=== PATIENT | female | born 1945 | race Caucasian/White ===

== ENCOUNTER 2019-08-30 09:36 | Inpatient (IN) | payer MEDICARE, BC ==
[~2019-08-30] VITALS: Ht 167.6 cm; Wt 80.0 kg
[~2019-08-30 09:36] MED LIST: AMIO200T33 PO; APIX5TAB PO; FAM20T PO; FLU220IH INH; FURO1TAB31 PO; GABA300C10 PO; LEV50T PO; METO2.5T11 PO; METO25TA36 PO; POTA1TAB61 PO
[2019-08-30 10:27] LABS: Basophils # (auto) 0.1 uL; Eosinophils # (auto) 0 uL; Eosinophils % (auto) 0.4 % (0.0-7.0); Monocytes # (auto) 0.7 uL; Neutrophils # (auto) 2.5 uL; Nucleated Red Blood Cells % 0.1 %
[2019-08-30 10:29] LABS: Basophils % (auto) 1.9 % (0.0-2.0); Hematocrit 40.5 % (36.0-46.0); Hemoglobin 14.6 g/dL (12.2-16.2); Lymphocytes # (auto) 1.9 uL; Lymphocytes % (auto) 36.9 % (10.0-50.0); Mean Corpuscular Hgb Conc. 36.1 g/dL (32.0-36.0); Mean Corpuscular Volume 96.9 fL (80.0-100.0); Monocytes % (auto) 13.7 % (0.0-12.0); Neutrophils % (auto) 47.1 % (37.0-80.0); Platelet Count (auto) 220 10^3/uL (140-450); Red Blood Cells 4.18 10^6/uL (4.0-5.20); White Blood Cell 5.2 10^3/uL (4.4-10.8)
[2019-08-30] MEDS ORDERED: MIDAZOLAM DRIP 50 mg/50mL 50 ML IV ONE (10:45)
[2019-08-30 10:46] LABS: Albumin 3.1 g/dL (3.4-5.0); Calcium 8.6 mg/dL (8.5-10.1)
[2019-08-30] MEDS ORDERED: ETOMIDATE (2MG/ML) 20ML VIAL IV ONE (10:46)
[2019-08-30] MEDS ORDERED: SUCCINYLCHOLINE CHLORIDE 20 MG/ML 10ML VIAL IV ONE (10:47)
[2019-08-30 10:48] LABS: BUN/Creatinine Ratio 12.8
[2019-08-30] MEDS ORDERED: ONDANSETRON HCL 4 MG/2 ML VIAL ONE (10:49)
[2019-08-30 10:53] LABS: Potassium 2.5 mmol/L (3.5-5.1)
[2019-08-30 11:05] LABS: Bilirubin, Total 0.5 mg/dL (0.2-1.0); Total Protein 6.7 g/dL (6.4-8.2)
[2019-08-30] MEDS ORDERED: SODIUM CHLORIDE 0.9% 1,000 ML IV ONE ×2 (11:49)
[2019-08-30] MEDS ORDERED: MORPHINE SULFATE 4 MG/ML SYR/VIAL IV ONE (12:00)
[2019-08-30] MEDS ORDERED: CLINDAMYCIN 600MG IV 50 ML IV ONE (12:00)
[2019-08-30] MEDS ORDERED: LEVOFLOXACIN 500MG 100 ML IV ONE (12:00)
[2019-08-30] MEDS: POTASSIUM CHL 20MEQ/100ML 100 ML IV SCH ×2 (12:30→14:42)
[2019-08-30] MEDS ORDERED: LIDOCAINE 4MG/ML IV SOLN 500 ML IV SCH (14:45)
[2019-08-30] MEDS ORDERED: NITROGLYCERIN 0.4 MG SL TAB SL PRN (14:45)
[2019-08-30] MEDS ORDERED: ACETAMINOPHEN 500 MG TAB PO PRN (14:45)
[2019-08-30] MEDS ORDERED: MORPHINE SULF INJ 2 MG/ML SYRINGE 1ML IV PRN (14:45)
[2019-08-30] MEDS ORDERED: POTASSIUM CHLORIDE 60 MEQ, LIDOCAINE 1% (LOCAL ANESTH.) 6 ML in SODIUM CHL 0.9% 500 ML IV ONE (15:30)
[2019-08-30 15:48] LABS: Urine Bacteria FEW /hpf (None Seen); Urine Blood Negative /uL (Negative); Urine Hyaline Cast MOD /lpf (0 - 2); Urine Mucus FEW (None Seen); Urine Specific Gravity 1.011 (1.001-1.035); Urine WBC 9 /hpf (0 - 5)
[2019-08-30] MEDS: GABAPENTIN 100 MG CAP PO SCH ×2 (16:34→22:37)
[2019-08-30] MEDS: AMIODARONE HCL 200 MG TAB PO SCH (16:34)
[2019-08-30] MEDS: HYDROmorphone HCL 2 MG/ML VL IV PRN (16:35)
[2019-08-30] MEDS: ONDANSETRON HCL 4 MG/2 ML VIAL IV PRN (16:35)
[2019-08-30 16:57] LABS: BUN/Creatinine Ratio 16.3
[2019-08-30 17:09] VITALS: BP 122/63
[2019-08-30 17:15] LABS: Potassium 2.7 mmol/L (3.5-5.1)
[2019-08-30] MEDS: MAGNESIUM SULFATE 1GM/100ML 100 ML IV SCH ×4 (17:46→22:59)
[2019-08-30] MEDS ORDERED: LEVALBUTEROL HCL 1.25 MG/3 ML NEB ONE (18:25)
[2019-08-30] MEDS ORDERED: IPRATROPIUM BROM 0.5 MG/2.5ML INH SOL ONE (18:25)
[2019-08-30] MEDS: LEVALBUTEROL HCL 1.25 MG/3 ML NEB NEB SCH (18:40)
[2019-08-30] MEDS: IPRATROPIUM BROM 0.5 MG/2.5ML INH SOL NEB SCH (18:40)
[2019-08-30] MEDS: APIXABAN 5 MG TAB PO SCH (22:37)
[2019-08-30] MEDS: METOPROLOL TARTRATE 25 MG TAB PO SCH (22:37)
[2019-08-30] MEDS: HYDROcodone-ACET 5/325MG TAB PO PRN (23:05)
[2019-08-31] MEDS: LEVALBUTEROL HCL 1.25 MG/3 ML NEB NEB SCH ×5 (00:18→23:16)
[2019-08-31] MEDS: IPRATROPIUM BROM 0.5 MG/2.5ML INH SOL NEB SCH ×5 (00:18→23:16)
[2019-08-31] MEDS: LEVOTHYROXINE SODIUM 100 MCG TAB PO SCH (07:27)
[2019-08-31] MEDS: GABAPENTIN 100 MG CAP PO SCH ×3 (07:27→20:56)
[2019-08-31 08:00] LABS: Basophils # (auto) 0 uL; Basophils % (auto) 0.4 % (0.0-2.0); Eosinophils # (auto) 0.1 uL; Lymphocytes # (auto) 1.4 uL
[2019-08-31 08:04] LABS: Eosinophils % (auto) 1.1 % (0.0-7.0); Hematocrit 34.8 % (36.0-46.0); Hemoglobin 11.9 g/dL (12.2-16.2); Lymphocytes % (auto) 23.3 % (10.0-50.0); Mean Corpuscular Hemoglobin 34.7 pg (28.0-32.0); Mean Corpuscular Hgb Conc. 34.3 g/dL (32.0-36.0); Mean Corpuscular Volume 101.3 fL (80.0-100.0); Monocytes # (auto) 0.5 uL; Monocytes % (auto) 8.4 % (0.0-12.0); Neutrophils % (auto) 66.8 % (37.0-80.0); Nucleated Red Blood Cells % 0.3 %; Platelet Count (auto) 171 10^3/uL (140-450); Red Blood Cells 3.44 10^6/uL (4.0-5.20); Red Cell Distribution Width 14.7 % (11.8-14.3)
[2019-08-31 08:26] LABS: Calcium 7.3 mg/dL (8.5-10.1); Potassium 3.4 mmol/L (3.5-5.1)
[2019-08-31 08:34] LABS: BUN/Creatinine Ratio 14.1
[2019-08-31] MEDS ORDERED: SERTRALINE HCL 50 MG TAB PO SCH (10:00)
[2019-08-31 10:30] VITALS: BP 139/68
--- NOTE | 2019-08-31 10:30 | NUR ---
RIGHT HAND. RIGHT HAND WAS SWOLLEN, [place] REMOVE TO ALLOW CIRCULATION. IV WAS REMOVED FROM RIGHT HAND D/T BLEEDING OF THE SITE.
--- NOTE | 2019-08-31 10:30 | NUR ---
PATIENT ARRIVED TO THE UNIT ALERT AND ORIENTED, UNLABORED RESPIRATION. EXPLAINED TO PT AND FAMILY THE USE OF CALL LIGHT. BED ON LOWEST POSITION FOR SAFETY. HELPED PT PLACE BILATERAL HEARING AIDS. PATIENT AWARE OF POC, VERBALIZED UNDERSTANDING. WILL CONTINUE TO MONITOR.
[2019-08-31] MEDS ORDERED: METO2.5T11 PO (10:53)
[2019-08-31] MEDS ORDERED: LEVO100T8 PO (10:53)
[2019-08-31] MEDS ORDERED: SERT25TA84 PO (10:53)
[2019-08-31] MEDS ORDERED: SACC1CAP3 PO (10:53)
[2019-08-31] MEDS ORDERED: D-MA500C PO (10:53)
[2019-08-31] MEDS ORDERED: GABA100C9 PO (10:53)
--- NOTE | 2019-08-31 11:00 | NUR ---
CODE CLARIFICATION WHILE RESOURCE NURSE WAS PERFORMING ADMISSION QUESTIONER. PATIENT STATED IN FRONT OF FAMILY DAUGHTER AND , THAT SHE WANTED FOR [facility] TO DO EVERYTHING POSSIBLE TO RESUSCITATE HER IN CASE OF AN EMERGENCY.
[2019-08-31] MEDS: APIXABAN 5 MG TAB PO SCH ×2 (12:27→20:56)
[2019-08-31] MEDS: FAMOTIDINE 20 MG TAB PO SCH (12:27)
[2019-08-31] MEDS: METOPROLOL TARTRATE 25 MG TAB PO SCH ×2 (12:27→21:08)
[2019-08-31] MEDS: ONDANSETRON HCL 4 MG/2 ML VIAL IV PRN ×2 (12:28→21:13)
[2019-08-31] MEDS: AMIODARONE HCL 200 MG TAB PO SCH (12:28)
[2019-08-31] MEDS: HYDROmorphone HCL 2 MG/ML VL IV PRN ×2 (12:33→21:13)
--- NOTE | 2019-08-31 12:42 | NUR ---
WOUND PICTURE TAKEN OF CHEST WOUND. COVERED WITH THERAHONEY SHEET AND OPTIFOAM. PATIENT TOLERATED WELL. NOW IN BED, RESTING WITH DAUGHTER AND AT BEDSIDE.
[2019-08-31 13:00] VITALS: BP 108/48
--- NOTE | 2019-08-31 13:33 | NUR ---
DR ALLYSON MASTERS AT BEDSIDE, ASSESSMENT PERFORMED, DR ANSWERED QUESTIONS TO FAMILY AND PATIENT. NEW ORDERS WILL BE CARRIED OUT. PATIENT OK TO START ON CLEAR LIQUIDS. PATIENT AGREED TO TRY AND REPORT ANY DISCOMFORT.
[2019-08-31 17:00] VITALS: BP 123/54
--- NOTE | 2019-08-31 17:46 | NUR ---
TALKED TO PATIENT ABOUT CODE STATUS WHILE TALKING TO PATIENT, I ASKED PATIENT IF SHE HAD AN ADVANCE DIRECTIVE, SHE SAID YES, BECAUSE SHE HAS HD MANY SURGERIES BEFORE. SO I ASKED IF IN CASE OF AN EMERGENCY IF SHE WANTED TO BE RESUSCITATED AND SHE SAID " OF COURSE, I DONT WANT TO " THIS WAS THE SAME STATEMENT SHE MADE EARLIER WHILE I WAS DOING THE SKIN ASSESSMENT IN FRONT OF DAUGHTER AND . HOWEVER, WHEN DR VALADEZ ASKED THE PATIENT IF SHE HAD AN ADVANCE DIRECTIVE, ANSWERED "YES' WELL HER DAUGHTER. AFTER A FEW CONVERSATIONS WITH GALO COLIN, I WILL COMMUNICATE THE PATIENT'S WISHES TO THE DR. Addendum: 08/31/19 at 1808 by ALEXUS MASON RN DURING THIS CONVERSATION IN THE ROOM WAS CHRISTOPHER CASH A SITTER.
--- NOTE | 2019-08-31 18:44 | NUR ---
U/A COLLECTED AND SENT, AWAITING FOR LAB TO SEND SWAP FOR INFLUENZA A&B SECOND PHONE CALL WAS MADE TO LAB. WILL CONTINUE TO MONITOR PATIENT MCDONALD SOME COUGH WHILE AWAKE, INSTRUCTED TO HUG A PILLOW TO COUGH, AND TO TAKE DEEP BREATH. PATIENT IS RESTING IN BED, COMFORTABLE UNLABORED BREATHING. SITTER IN THE ROOM. WILL CONTINUE TO MONITOR.
[2019-08-31] MEDS ORDERED: POTASSIUM EFFERVESENT TAB 25 MEQ PO ONE (19:00)
--- NOTE | 2019-08-31 19:30 | NUR ---
OPENING NOTE- NOC SHIFT PATIENT IS ALERT AND ORIENTED, ANSWERS IN COMPLETE SENTENCES AND MAKES APPROPRIATE EYE CONTACT. PATIENT IS IN BED, BED IS LOCKED IN LOWEST POSITION, BED RAILS UP X2, HEAD OF BED IS UP >30 DEGREES AND NURSE INVESTMENT EXECUTIVE AT BEDSIDE FOR SAFETY PRECAUTIONS. BEDSIDE TABLE WITHIN REACH, CALL LIGHT WITHIN REACH. PATIENT HAS OPTIFOAM TO CHEST; DRAINAGE CIRCLED. DISCUSSED POC WITH PATIENT AND INSTRUCTED PATIENT TO CALL PRN; PATIENT VERBALIZED UNDERSTANDING.
--- NOTE | 2019-08-31 19:42 | NUR ---
CARE ENDORSED TO GRISEL
[2019-08-31 20:05] VITALS: BP 111/49
[2019-08-31 20:35] VITALS: BP 111/49
[2019-08-31] MEDS: cefTRIAXone 1GM/50ML D5W 50 ML IV SCH (20:56)
[2019-08-31 21:00] VITALS: BP 111/49
--- NOTE | 2019-09-01 04:45 | NUR ---
PATIENT PULLED OUT IV TO LEFT HAND. CATHETER OUT COMPLETE AND INTACT. APPLIED PRESSURE TO SITE.
--- NOTE | 2019-09-01 05:01 | NUR ---
INFLUENZA SWAB SENT TO LAB
--- NOTE | 2019-09-01 05:02 | NUR ---
URINE COLLECTED AND SENT TO LAB
--- NOTE | 2019-09-01 05:44 | NUR ---
IV insertion IV access obtained, via clean sterile technique by inserting 22 gauge catheter at RIGHT WRIST after attempt(s). IV secured properly. No trauma to site. Patient tolerated well.
[2019-09-01] MEDS: GABAPENTIN 100 MG CAP PO SCH ×3 (06:33→21:05)
[2019-09-01] MEDS: ONDANSETRON HCL 4 MG/2 ML VIAL IV PRN ×2 (06:33→23:08)
[2019-09-01] MEDS: LEVOTHYROXINE SODIUM 100 MCG TAB PO SCH (06:33)
[2019-09-01] MEDS: HYDROmorphone HCL 2 MG/ML VL IV PRN ×2 (06:33→23:07)
[2019-09-01 06:59] LABS: Basophils # (auto) 0 uL; Basophils % (auto) 0.5 % (0.0-2.0); Eosinophils # (auto) 0.1 uL; Eosinophils % (auto) 1.4 % (0.0-7.0); Hemoglobin 11.5 g/dL (12.2-16.2); Lymphocytes # (auto) 0.8 uL; Mean Corpuscular Hemoglobin 34.9 pg (28.0-32.0); Mean Corpuscular Hgb Conc. 34.9 g/dL (32.0-36.0); Monocytes # (auto) 0.7 uL; Neutrophils # (auto) 5.3 uL; Red Blood Cells 3.29 10^6/uL (4.0-5.20)
[2019-09-01 07:03] LABS: Hematocrit 32.9 % (36.0-46.0); Lymphocytes % (auto) 11.3 % (10.0-50.0); Mean Corpuscular Volume 100.1 fL (80.0-100.0); Monocytes % (auto) 10.2 % (0.0-12.0); Neutrophils % (auto) 76.6 % (37.0-80.0); Platelet Count (auto) 164 10^3/uL (140-450); Red Cell Distribution Width 14.7 % (11.8-14.3)
[2019-09-01 07:15] LABS: BUN/Creatinine Ratio 10.5; Calcium 7.4 mg/dL (8.5-10.1)
[2019-09-01] MEDS: LEVALBUTEROL HCL 1.25 MG/3 ML NEB NEB SCH ×3 (07:34→19:06)
[2019-09-01] MEDS: IPRATROPIUM BROM 0.5 MG/2.5ML INH SOL NEB SCH ×3 (07:34→19:06)
[2019-09-01 08:00] VITALS: BP 113/63
--- NOTE | 2019-09-01 08:15 | NUR ---
Opening Shift Note Assumed care of patient, awake and alert. Sitter in room. No S/S of distress/SOB or pain. Instructed on POC and to call for assist PRN, call light within reach and bed in locked and lowest position. Will continue to monitor for changes Q1hr and PRN.
[2019-09-01] MEDS: cefTRIAXone 1GM/50ML D5W 50 ML IV SCH ×2 (08:58→21:04)
[2019-09-01] MEDS: APIXABAN 5 MG TAB PO SCH ×2 (08:59→21:04)
[2019-09-01] MEDS: METOPROLOL TARTRATE 25 MG TAB PO SCH ×2 (08:59→21:05)
[2019-09-01] MEDS: AMIODARONE HCL 200 MG TAB PO SCH (08:59)
[2019-09-01 09:00] VITALS: BP 113/63
[2019-09-01] MEDS: FAMOTIDINE 20 MG TAB PO SCH (09:00)
--- NOTE | 2019-09-01 12:05 | NUR ---
Patient brought down to equipment operator/laborer/supervisor
--- NOTE | 2019-09-01 12:28 | NUR ---
Respiratory note: UNABLE TO GIVE PT MEDNEB TX DUE TO PT BEING OFF THE FLOOR, AT A PROCEDURE.
[2019-09-01] MEDS ORDERED: LIDOCAINE 2%HCL (LOCAL ANESTH.) INJ 20ML MDV ONE (12:47)
[2019-09-01] MEDS ORDERED: IOHEXOL 350 MG/ML 100ML IJ ONE ×2 (12:48→13:50)
[2019-09-01 13:00] VITALS: BP 150/96
[2019-09-01] MEDS ORDERED: fentaNYL CITRATE 100 MCG/2 ML VL ONE (13:32)
[2019-09-01] MEDS ORDERED: diphenhdrAMINE HCL 50 MG/1 ML VL ONE (13:32)
[2019-09-01] MEDS ORDERED: ANGIOMAX 250 MG VIAL IV ONE (13:32)
[2019-09-01] MEDS ORDERED: SODIUM CHL 0.9% 0 ML ONE (13:32)
[2019-09-01] MEDS ORDERED: BENAZEPRIL HCL 10 MG TAB PO ONE (15:00)
--- NOTE | 2019-09-01 15:04 | NUR ---
NUTRITION ASSESSMENT NOTES Please refer to link notes of nutrition screen form filed under the intervention section of the plan of care for further details. Est. Needs: 1600 kcal to 2000 kcal (20-25 kcal/kgBW), 63 gms to 79 gms pro (0.8-1.0 gms/kgBW). Will continue to monitor pertinent labs and reassess nutrient need prn Thank you. Addendum: 09/01/19 at [address] Amended: Links added.
--- NOTE | 2019-09-01 15:24 | NUR ---
Patient returned from laboratory clerk. VS 150/96, 94%, 14, 67 HR and 98.7. laboratory clerk nurse and I checked right groin together, dressing is clean, dry and intact. Patient to remain flat until 16:00. Patient declined any pain meds. Sitter in room along with patients . Will continue to monitor.
--- NOTE | 2019-09-01 15:30 | NUR ---
WOUND CARE NOTE: Wound care consult received from nursing. Patient is a 73yo female admitted s/p vfib/cardiac arrest. Patient with a history of afib, hypertension, hyperlipidemia, pneumonia, depression, and hypothyroid. Patient's last Amari score is 15. Discussed with bedside RN, Princess. Patient recently returned from [facility] and refused to be assessed at this time. Per bedside RN and photos, patient with a skin tear to chest that measures 2x2cm. Nursing currently with foam dressing in place. RECOMMENDATIONS: Nursing to cleanse chest skin tear with wound cleanser, pat dry, apply therahoney gel, cover with foam and change every other day and PRN; turn q2hrs; dietary consult; wound care team to follow.
--- NOTE | 2019-09-01 16:25 | NUR ---
Dr. Michael bedside with patient discussing plan of care.
[2019-09-01 17:00] VITALS: BP 150/76
--- NOTE | 2019-09-01 19:10 | NUR ---
OPENING NOTE- NOC SHIFT PATIENT IS IN BED, BED IS LOCKED AT LOWEST POSITION, BED RAILS UP X2, HEAD OF BED IS UP >30 DEGREES AND NURSE ENDODONTIST AT BEDSIDE FOR SAFETY PRECAUTIONS. BEDSIDE TABLE WITHIN REACH, CALL LIGHT WITHIN REACH. DISCUSSED POC WITH PATIENT AND INSTRUCTED PATIENT TO CALL PRN; PATIENT VERBALIZED UNDERSTANDING. WILL CONTINUE TO MONITOR Q1H AND PRN.
--- NOTE | 2019-09-01 19:30 | NUR ---
PATIENT CONFUSED AT TIMES AND REFUSES ASSESSMENT. NO S/SX OF DISTRESS, SOB OR PAIN.
[2019-09-01 20:05] VITALS: BP 113/63
--- NOTE | 2019-09-01 23:10 | NUR ---
PATIENT COMPLAINING OF PAIN TO RIBS. SHE STATES "I MUST HAVE FALLEN WHEN I OPENED THE FRONT DOOR THIS MORNING". PATIENT THEN GOES ON TO STATING THAT THE NURSE RECRUIT INSTRUCTOR AT BEDSIDE IS SPYING ON HER AND THAT DOES NOT GIVE HER ANY PRIVACY. SHE STATES THAT SHE IS NOT RECEIVING PROPER CARE FROM THE STAFF AT THIS FACILITY. PATIENT STATES " I BELIEVE THAT YOU ARE ALL LINKED TOGETHER, YOU REMIND ME OF A CULT." REORIENTED PATIENT BACK TO PLACE, SITUATION, AND TIME.
[2019-09-02] MEDS: LEVALBUTEROL HCL 1.25 MG/3 ML NEB NEB SCH ×4 (00:28→18:38)
[2019-09-02] MEDS: IPRATROPIUM BROM 0.5 MG/2.5ML INH SOL NEB SCH ×4 (00:29→18:38)
[2019-09-02 03:50] VITALS: BP 142/71
[2019-09-02 05:02] VITALS: BP 146/60
--- NOTE | 2019-09-02 06:00 | NUR ---
PATIENT STATES THAT SHE IS FULL CODE. PATIENT STATES THAT SHE WANTS CPR BUT DOES NOT WANT LIFE SUSTAINING MEASURES; SHE STATED " I DO WANT CPR, I DON'T WANT TO , BUT I DO NOT WANT TO BE KEPT HOOKED ON TO A MACHINE IN ORDER TO KEEP ME ALIVE IF I CAN'T EVEN THINK FOR MYSELF". WILL ENDORSE TO DAY SHIFT RN.
[2019-09-02 06:44] LABS: Basophils # (auto) 0 uL; Eosinophils # (auto) 0.1 uL; Hemoglobin 11.2 g/dL (12.2-16.2); Lymphocytes # (auto) 0.7 uL; Monocytes # (auto) 0.7 uL; Neutrophils # (auto) 6.7 uL; Neutrophils % (auto) 80.6 % (37.0-80.0)
[2019-09-02 06:47] LABS: Basophils % (auto) 0.3 % (0.0-2.0); Eosinophils % (auto) 1.6 % (0.0-7.0); Hematocrit 31.5 % (36.0-46.0); Lymphocytes % (auto) 8.7 % (10.0-50.0); Mean Corpuscular Hemoglobin 35.4 pg (28.0-32.0); Mean Corpuscular Hgb Conc. 35.5 g/dL (32.0-36.0); Mean Corpuscular Volume 99.5 fL (80.0-100.0); Monocytes % (auto) 8.8 % (0.0-12.0); Nucleated Red Blood Cells % 0.1 %; Platelet Count (auto) 159 10^3/uL (140-450); Red Blood Cells 3.17 10^6/uL (4.0-5.20); Red Cell Distribution Width 14.8 % (11.8-14.3); White Blood Cell 8.4 10^3/uL (4.4-10.8)
[2019-09-02 07:06] LABS: Calcium 7.6 mg/dL (8.5-10.1); Magnesium 2.1 mg/dL (1.6-2.6)
[2019-09-02 07:08] LABS: BUN/Creatinine Ratio 12.3
[2019-09-02] MEDS: GABAPENTIN 100 MG CAP PO SCH ×3 (07:11→21:45)
[2019-09-02] MEDS: LEVOTHYROXINE SODIUM 100 MCG TAB PO SCH (07:11)
--- NOTE | 2019-09-02 07:30 | NUR ---
ENDORSED PATIENT CARE TO DAY SHIFT NURSE CHERELLE MCKEON. PATIENT IS COMFORTABLE IN BED. NO S/SX OF DISTRESS, SOB OR PAIN.
[2019-09-02 08:00] VITALS: BP 121/63
[2019-09-02] MEDS: FAMOTIDINE 20 MG TAB PO SCH (10:00)
[2019-09-02] MEDS: cefTRIAXone 1GM/50ML D5W 50 ML IV SCH ×2 (10:17→21:07)
[2019-09-02] MEDS: HYDROmorphone HCL 2 MG/ML VL IV PRN ×2 (10:19→15:16)
[2019-09-02] MEDS: APIXABAN 5 MG TAB PO SCH ×2 (10:24→21:45)
[2019-09-02] MEDS: AMIODARONE HCL 200 MG TAB PO SCH (10:24)
[2019-09-02] MEDS: METOPROLOL TARTRATE 25 MG TAB PO SCH ×3 (10:26→22:00)
[2019-09-02] MEDS: BENAZEPRIL HCL 10 MG TAB PO SCH (10:27)
[2019-09-02 13:00] VITALS: BP 139/75
--- NOTE | 2019-09-02 13:44 | NUR ---
Dr Michael saw patient and daughter and discussed POC. New orders for cough expectorant, physical therapy, respiratory culture, advance diet, and MD notified pt had small BM this morning, but last BM before was 08/27. Pt has been on clear liquid diet. aware.
[2019-09-02] MEDS ORDERED: LACTULOSE 20Gm/30ML SOLN PO PRN (14:00)
[2019-09-02] MEDS: guaiFENesin-DM 100/10mg/5ml SYR PO SCH ×2 (15:15→21:45)
--- NOTE | 2019-09-02 16:34 | NUR ---
PT TURNED TO RIGHT SIDE. SPOKE WITH TOD BARON REPORTS DR ROONEY UPDATED HER ORDER AND SHE IS STILL WORKING WITH HOME HEALTH FOR DISCHARGE. Addendum: 09/02/19 at 1636 by GAVINO NOLAND RN WRONG PATIENT
[2019-09-02 17:00] VITALS: BP 144/71
--- NOTE | 2019-09-02 18:38 | NUR ---
ASSESSED PT @ THIS TIME FOR MED NEB TX. PT REFUSED HER TX. STATES SHE JUST WANTS TO SLEEP. CURRENTLY ON 3L NC 94%, HR 65, RR 18 AND BS ARE DIMINISHED. NO DISTRESS NOTED. PT IS AWARE TO CALL IF SHE CHANGES HER MIND OR FEELS SOB. @ BEDSIDE.
--- NOTE | 2019-09-02 18:49 | NUR ---
PT OUT PUT 175 MLS THIS SHIFT, PAGED HOSPITALIST, AWAITING CALL BACK.
[2019-09-02] MEDS ORDERED: FUROSEMIDE 20 MG TAB PO ONE (19:00)
--- NOTE | 2019-09-02 19:10 | NUR ---
OPENING NOTE- NOC SHIFT PATIENT IS IN BED RESTING EYES CLOSED. BREATHING EVENLY. NO S/SX OF DISTRESS, SOB OR PAIN. BED IS LOCKED AT LOWEST POSITION, BED RAILS ARE UP X2, HEAD OF BED IS UP >30 DEGREES AND NURSE JAVA FRONT END WEB DEVELOPER IS AT BEDSIDE FOR SAFETY PRECAUTIONS. IS AT BEDSIDE AND REQUESTS TO SPEAK WITH CHARGE NURSE BECAUSE HE WANTS TO SPEND THE NIGHT AT THE BEDSIDE; WILL INFORM CHARGE NURSE MOISÉS. WILL CONTINUE TO MONITOR Q1H AND PRN.
--- NOTE | 2019-09-02 19:15 | NUR ---
DR PALACIO CALLED BACK. NOTIFIED MD PT OUTPUT 175 MLS PER SHIFT. MD AWARE, MD REPORTS HE WILL PUT IN ORDERS.
--- NOTE | 2019-09-02 19:30 | NUR ---
PATIENT'S JUANJO WAS INFORMED BY CHARGE NURSE MOISÉS MCKEON THAT HE MAY NOT STAY PER HOSPITAL POLICY. JUANJO WAS GIVEN DIRECT RN EXT AND WAS OFFERED TO COME IN EARLY IN THE MORNING.
[2019-09-02 20:10] VITALS: BP 133/68
[2019-09-03] MEDS: LEVALBUTEROL HCL 1.25 MG/3 ML NEB NEB SCH ×4 (00:36→18:23)
[2019-09-03] MEDS: IPRATROPIUM BROM 0.5 MG/2.5ML INH SOL NEB SCH ×4 (00:36→18:23)
--- NOTE | 2019-09-03 00:36 | NUR ---
PT DID NOT WANT TO BE WOKEN UP FOR HER 0000 SCHEDULED MED NEB. PT IS SLEEPING COMFORTABLY @ THIS TIME, NO DISTRESS NOTED.
[2019-09-03 01:46] VITALS: BP 127/59
--- NOTE | 2019-09-03 06:45 | NUR ---
DRESSING CHANGE TO STERNUM PER MD ORDERS. PATIENT TOLERATED WELL. NO FOUL ODOR. NO DRAINAGE.
[2019-09-03] MEDS: LEVOTHYROXINE SODIUM 100 MCG TAB PO SCH (06:55)
[2019-09-03] MEDS: GABAPENTIN 100 MG CAP PO SCH ×3 (06:55→21:53)
[2019-09-03] MEDS: guaiFENesin-DM 100/10mg/5ml SYR PO SCH ×4 (06:55→21:54)
[2019-09-03 07:09] LABS: Basophils # (auto) 0 uL; Eosinophils # (auto) 0.1 uL; Hemoglobin 10.9 g/dL (12.2-16.2)
[2019-09-03 07:17] LABS: Basophils % (auto) 0.4 % (0.0-2.0); Hematocrit 31.2 % (36.0-46.0); Lymphocytes # (auto) 0.7 uL; Lymphocytes % (auto) 7.6 % (10.0-50.0); Mean Corpuscular Hemoglobin 35.1 pg (28.0-32.0); Monocytes # (auto) 0.9 uL; Neutrophils # (auto) 7.2 uL; Platelet Count (auto) 182 10^3/uL (140-450); Red Blood Cells 3.12 10^6/uL (4.0-5.20); Red Cell Distribution Width 14.5 % (11.8-14.3); White Blood Cell 8.8 10^3/uL (4.4-10.8)
--- NOTE | 2019-09-03 07:30 | NUR ---
ENDORSED PATIENT CARE TO DAY SHIFT NURSE POWER RN. PATIENT IS RESTING COMFORTABLE IN BED, BED IS LOCKED AT LOWEST POSITION, BED RAILS UP X2. NURSE HAND GLUER AND SLICER IS AT BEDSIDE FOR SAFETY PRECAUTIONS. NO S/SX OF DISTRESS, SOB OR PAIN.
[2019-09-03 07:38] LABS: Potassium 4.2 mmol/L (3.5-5.1)
[2019-09-03 07:47] LABS: BUN/Creatinine Ratio 13.4; Calcium 7.4 mg/dL (8.5-10.1)
[2019-09-03 08:00] VITALS: BP 123/68
[2019-09-03] MEDS: cefTRIAXone 1GM/50ML D5W 50 ML IV SCH ×2 (09:34→21:52)
[2019-09-03] MEDS: ONDANSETRON HCL 4 MG/2 ML VIAL IV PRN (09:34)
[2019-09-03] MEDS: APIXABAN 5 MG TAB PO SCH ×2 (10:21→21:53)
[2019-09-03] MEDS: METOPROLOL TARTRATE 25 MG TAB PO SCH ×2 (10:21→21:53)
[2019-09-03] MEDS: AMIODARONE HCL 200 MG TAB PO SCH (10:21)
[2019-09-03] MEDS: FAMOTIDINE 20 MG TAB PO SCH (10:22)
[2019-09-03] MEDS: BENAZEPRIL HCL 10 MG TAB PO SCH (10:22)
--- NOTE | 2019-09-03 11:44 | NUR ---
PATIENT REFUSED P.T. TRIED TO CONVINCE HER TO TRY.
--- NOTE | 2019-09-03 12:20 | NUR ---
Nutrition Follow-up Notes Wt.: 77.1 kg Pt's sleeping with no family by bedside. pt with no distress noted with N.V and active GI consult. pt is currently on cardiac pureed diet with inadequate PO < 50% x 3 per RN doc Est. Needs: 1600 kcal to 2000 kcal (20-25 kcal/kgBW), 63 gms to 79 gms pro (0.8-1.0 gms/kgBW). Will continue to monitor pertinent labs and reassess nutrient need prn Labs: CA 7.6 L, rest lab wnl Skin: Amari scale 15 mod risk, burn on anterior chest per push connector assembler GI: Pt had 1 BM this morning push connector assembler. PES: Altered nutrition related lab values r/t current/chronic medical condition aeb hyponatremia, elev. Trop I , hypocalcemia and mild hypoalbuminemia Will continue to monitor PO intake, skin status, pertinent labs and weight trend. F/u in 3-5 days. Rec.: 1.) Consider ensure Enlive 1 carton bid if PO continues to be low. 2.) If Albumin level continues trending down, consider Prostat 1 pkt BID. 3.) Continue close supervision and feeding assistance prn during meals 4.) Refer to RD for further nutrition education and weight monitoring upon discharged. 5.) Continue current plan of care.
[2019-09-03 13:00] VITALS: BP 142/76
[2019-09-03] MEDS ORDERED: GASTROGRAFIN 120 ML SOL ONE (15:15)
[2019-09-03] MEDS ORDERED: EZ-GAS II GRANULES (RADIOLOGY USE) PO ONE (15:46)
[2019-09-03] MEDS: SUCRALFATE 1 GM/10 ML ORAL SUSP PO SCH ×2 (17:41→21:53)
--- NOTE | 2019-09-03 19:05 | NUR ---
OPENING NOTE- NOC SHIFT PATIENT IS IN BED RESTING, NO S/SX OF DISTRESS, SOB OR PAIN. IS AT BEDSIDE. BEDSIDE TABLE WITHIN REACH, CALL LIGHT WITHIN REACH. DISCUSSED POC WITH PATIENT AND . NURSE AIRCRAFT ENGINE CYLINDER MECHANIC IS AT BEDSIDE FOR SAFETY PRECAUTIONS. WILL CONTINUE TO MONITOR Q1H AND PRN.
[2019-09-03 20:15] VITALS: BP 149/77
[2019-09-03] MEDS: PANTOPRAZOLE 40 MG TAB PO SCH (21:53)
[2019-09-03 22:00] VITALS: BP 149/77
[2019-09-04] MEDS: LEVALBUTEROL HCL 1.25 MG/3 ML NEB NEB SCH ×4 (00:26→19:18)
[2019-09-04] MEDS: IPRATROPIUM BROM 0.5 MG/2.5ML INH SOL NEB SCH ×4 (00:26→19:18)
--- NOTE | 2019-09-04 01:00 | NUR ---
PATIENT COMPLAINING OF PAIN TO RIBS WHEN SHE COUGHS. WILL ADMINISTER PAIN MEDICATION PER MD ORDERS ON eMAR.
[2019-09-04] MEDS: HYDROmorphone HCL 2 MG/ML VL IV PRN (01:01)
[2019-09-04 05:00] VITALS: BP 123/77
[2019-09-04 06:28] LABS: Basophils # (auto) 0 uL; Eosinophils # (auto) 0.1 uL; Lymphocytes # (auto) 0.5 uL; Mean Corpuscular Volume 100.4 fL (80.0-100.0); Monocytes # (auto) 1.1 uL; Neutrophils # (auto) 5.5 uL; Neutrophils % (auto) 76.4 % (37.0-80.0); Red Cell Distribution Width 14.4 % (11.8-14.3); White Blood Cell 7.2 10^3/uL (4.4-10.8)
[2019-09-04 06:30] LABS: Basophils % (auto) 0.5 % (0.0-2.0); Hematocrit 30.2 % (36.0-46.0); Hemoglobin 10.7 g/dL (12.2-16.2); Mean Corpuscular Hemoglobin 35.6 pg (28.0-32.0); Mean Corpuscular Hgb Conc. 35.4 g/dL (32.0-36.0); Monocytes % (auto) 15.1 % (0.0-12.0); Nucleated Red Blood Cells % 0.1 %; Platelet Count (auto) 210 10^3/uL (140-450); Red Blood Cells 3.01 10^6/uL (4.0-5.20)
[2019-09-04] MEDS: GABAPENTIN 100 MG CAP PO SCH ×3 (06:37→21:36)
[2019-09-04] MEDS: SUCRALFATE 1 GM/10 ML ORAL SUSP PO SCH ×4 (06:37→21:38)
[2019-09-04] MEDS: guaiFENesin-DM 100/10mg/5ml SYR PO SCH ×4 (06:37→21:38)
[2019-09-04] MEDS: LEVOTHYROXINE SODIUM 100 MCG TAB PO SCH (06:38)
[2019-09-04 06:47] LABS: Calcium 7.5 mg/dL (8.5-10.1); Potassium 3.6 mmol/L (3.5-5.1)
[2019-09-04 06:55] LABS: BUN/Creatinine Ratio 14.1
--- NOTE | 2019-09-04 07:16 | NUR ---
ENDORSED PATIENT CARE TO DAY SHIFT NURSE POWER RN. PATIENT IS RESTING COMFORTABLE IN BED. NO S/SX OF DISTRESS, SOB OR PAIN. NURSE NEEDLE VALVE OPERATOR AT BEDSIDE FOR SAFETY PRECAUTIONS.
[2019-09-04] MEDS: cefTRIAXone 1GM/50ML D5W 50 ML IV SCH (09:37)
--- NOTE | 2019-09-04 09:48 | NUR ---
Holding AM meds Patient is very lethargic this morning. She responds verbally to sound/touch, but does not open her eyes. Falls back to sleep quickly. Will attempt again shortly.
[2019-09-04] MEDS: BENAZEPRIL HCL 10 MG TAB PO SCH (11:00)
[2019-09-04] MEDS: APIXABAN 5 MG TAB PO SCH ×2 (11:00→21:37)
[2019-09-04] MEDS: METOPROLOL TARTRATE 25 MG TAB PO SCH ×2 (11:00→21:38)
[2019-09-04] MEDS: AMIODARONE HCL 200 MG TAB PO SCH (11:00)
[2019-09-04] MEDS: PANTOPRAZOLE 40 MG TAB PO SCH ×2 (11:00→21:37)
[2019-09-04 13:56] LABS: Alanine Aminotransferase 27 U/L (13-56); Aspartate Aminotransferase 30 U/L (15-37)
[2019-09-04] MEDS: MEGESTROL ACETATE 20 MG TAB PO SCH ×2 (14:47→21:36)
--- NOTE | 2019-09-04 17:48 | NUR ---
SWALLOW EVALUATED. FAMILY PRESENT. PATIENT HAS OWN TEETH UPPER AND LOWER. PATIENT WAS ABLE TO TOLERATE TRIAL OF PUREE TEXTURE WITH THIN LIQUIDS WITH NO OVERT SIGNS OR SYMPTOMS OF ASPIRATION. HOWEVER, SEVERAL MINUTES FOLLOWING TRIAL PATIENT BEGAN TO GAG WITH NO EMESIS. NURSING REPORTS THE SAME THING AT BREAKFAST ONLY FOOD DID COME UP AT THAT TIME. SWALLOW APPEARS COMPLETE WITH STRONG LARYNGEAL LIFT. NURSING PRESENT.
[2019-09-04] MEDS: Ensure Enlive Strawberry 8oz Bottle PO SCH (18:00)
--- NOTE | 2019-09-04 19:30 | NUR ---
Opening Shift Note Assumed care of patient. Patient is awake and alert. No S/S of distress/SOB. Instructed on POC and to call for assist PRN, will continue to monitor for changes. Bed locked in lowest position and bed rails up x2. Call light within reach.
[2019-09-04 21:18] VITALS: BP_SYST 118; BP_SYST 123; BP_DIAS 54; BP_DIAS 60
[2019-09-05] MEDS: IPRATROPIUM BROM 0.5 MG/2.5ML INH SOL NEB SCH ×4 (00:48→19:20)
[2019-09-05] MEDS: LEVALBUTEROL HCL 1.25 MG/3 ML NEB NEB SCH ×4 (00:48→19:20)
--- NOTE | 2019-09-05 05:32 | NUR ---
250ml of urine output for shift
[2019-09-05 05:37] VITALS: BP 105/57
[2019-09-05] MEDS: MEGESTROL ACETATE 20 MG TAB PO SCH ×3 (05:50→22:52)
[2019-09-05] MEDS: GABAPENTIN 100 MG CAP PO SCH ×3 (05:50→22:52)
[2019-09-05] MEDS: guaiFENesin-DM 100/10mg/5ml SYR PO SCH ×4 (05:50→22:52)
[2019-09-05] MEDS: SUCRALFATE 1 GM/10 ML ORAL SUSP PO SCH ×4 (05:50→22:52)
[2019-09-05] MEDS: LEVOTHYROXINE SODIUM 100 MCG TAB PO SCH (05:50)
--- NOTE | 2019-09-05 07:02 | NUR ---
Opening shift note Assumed care of patient from shift stacker nurse. Patient is alert and oriented x4. Patient is hard of hearing. No signs of distress noted. Patient was updated on the plan of care and verbalizes understanding. Ortiz is in place, hung below the bladder level, tubing is free of kinks and independent loops, draining clear yellow urine. Bed is locked in the lowest position, side rails up x3, call light in reach. patient is a high fall risk. sitter at bedside. Patient was encouraged to call for assistance.
[2019-09-05] MEDS: Ensure Enlive Strawberry 8oz Bottle PO SCH ×2 (08:00→18:49)
[2019-09-05 09:00] VITALS: BP 91/51
--- NOTE | 2019-09-05 09:13 | NUR ---
Physical therapy at bedside
[2019-09-05] MEDS ORDERED: LEVOTHYROXINE SODIUM 25 MCG TAB PO ONE (09:45)
[2019-09-05] MEDS: APIXABAN 5 MG TAB PO SCH ×2 (11:09→22:52)
[2019-09-05] MEDS: PANTOPRAZOLE 40 MG TAB PO SCH ×2 (11:09→22:52)
[2019-09-05] MEDS: AMIODARONE HCL 200 MG TAB PO SCH (11:09)
[2019-09-05] MEDS: METOPROLOL TARTRATE 25 MG TAB PO SCH ×2 (11:10→22:00)
[2019-09-05] MEDS: BENAZEPRIL HCL 10 MG TAB PO SCH (11:10)
--- NOTE | 2019-09-05 13:55 | NUR ---
Dr. Agee at bedside No new orders received
--- NOTE | 2019-09-05 13:58 | NUR ---
Dr. Lake at bedside New orders received and carried out
--- NOTE | 2019-09-05 16:57 | NUR ---
assessment Patient is a 73 year old female who is alert and oriented. Patients cognitive abilities are intact. Prior to admission patient lived home with her Carlin and functioned independently. Patient informed me she is able to care for her own ADLs. Per patient she will return home to her prior living arrangements post discharge and family will transport her home. Patients PCP is Dr Bird in [place]. Patient has a fww, cane, and 02 for home use. Patient is feeling weak. Patient may need home health for PT or SNF on discharge. I informed patient she has a right to speak to a psychotherapist social worker regarding all care. I informed patient she has a right to participate in any and all discharge planning. Patient has a POA and advanced directive. Patient verbalized understanding and agreed to discharge plan. Addendum: 09/05/19 at 1659 by Elba BUNDY Amended: Links added.
[2019-09-05 17:54] VITALS: BP 123/58
--- NOTE | 2019-09-05 19:03 | NUR ---
CLOSING SHIFT NOTE Care endorsed to mold shifter RN
--- NOTE | 2019-09-05 19:40 | NUR ---
Opening Shift Note Assumed care of patient. Patient is awake and alert with sitter at bedside. No S/S of distress/SOB or pain. Instructed on POC and to call for assist PRN, will continue to monitor for changes. Bed locked in lowest position and bed rails up x2. Call light within reach.
[2019-09-06] VITALS (7 sets, daily range): BP systolic 91–145; BP diastolic 53–68
[2019-09-06] MEDS: IPRATROPIUM BROM 0.5 MG/2.5ML INH SOL NEB SCH ×4 (00:41→18:45)
[2019-09-06] MEDS: LEVALBUTEROL HCL 1.25 MG/3 ML NEB NEB SCH ×4 (00:41→18:45)
[2019-09-06] MEDS: guaiFENesin-DM 100/10mg/5ml SYR PO SCH ×2 (05:48→11:56)
[2019-09-06] MEDS: SUCRALFATE 1 GM/10 ML ORAL SUSP PO SCH ×4 (05:48→23:07)
[2019-09-06] MEDS: MEGESTROL ACETATE 20 MG TAB PO SCH ×3 (05:49→23:07)
[2019-09-06] MEDS: LEVOTHYROXINE SODIUM 50 MCG TAB PO SCH (05:49)
[2019-09-06] MEDS: GABAPENTIN 100 MG CAP PO SCH ×3 (05:49→23:09)
--- NOTE | 2019-09-06 07:30 | NUR ---
Opening Shift Note Assumed care of patient, awake and alert. No S/S of distress/SOB or pain. For safety patients bed is locked, in the lowest position with 2 side rails up. Patients Carlin at bedside. Instructed on POC and to call for assist PRN, will continue to monitor for changes.
[2019-09-06] MEDS: Ensure Enlive Strawberry 8oz Bottle PO SCH ×2 (08:00→18:41)
[2019-09-06] MEDS: PANTOPRAZOLE 40 MG TAB PO SCH ×2 (10:15→23:08)
[2019-09-06] MEDS: AMIODARONE HCL 200 MG TAB PO SCH (10:17)
[2019-09-06] MEDS: BENAZEPRIL HCL 10 MG TAB PO SCH (10:18)
[2019-09-06] MEDS: APIXABAN 5 MG TAB PO SCH ×2 (10:19→23:07)
[2019-09-06] MEDS: METOPROLOL TARTRATE 25 MG TAB PO SCH ×2 (10:29→22:00)
[2019-09-06] MEDS ORDERED: guaiFENesin-DM 100/10mg/5ml SYR PO PRN (14:30)
[2019-09-06] MEDS ORDERED: guaiFENesin-CODEINE Liq 5 ML UD PO ONE (14:45)
[2019-09-06] MEDS ORDERED: PROMETHAZINE-DM 5 ML ORAL SYRUP GT ONE (15:00)
[2019-09-06] MEDS ORDERED: POTASSIUM CHL 10 Meq TABLET PO ONE (16:30)
[2019-09-06] MEDS ORDERED: FUROSEMIDE 20 MG/2 ML VIAL IV ONE (16:30)
[2019-09-06] MEDS: PROMETHAZINE-DM 5 ML ORAL SYRUP PO PRN ×2 (18:51→23:13)
--- NOTE | 2019-09-06 19:30 | NUR ---
Opening Shift Note Assumed care of patient, awake and alert. Sitter on bedside No S/S of distress/SOB or pain. Instructed on POC and to call for assist PRN, will continue to monitor for changes Q1hr and PRN.
[2019-09-07] MEDS: LEVALBUTEROL HCL 1.25 MG/3 ML NEB NEB SCH ×4 (00:39→18:20)
[2019-09-07] MEDS: IPRATROPIUM BROM 0.5 MG/2.5ML INH SOL NEB SCH ×4 (00:39→18:20)
[2019-09-07] MEDS: PROMETHAZINE-DM 5 ML ORAL SYRUP PO PRN ×5 (04:06→21:50)
[2019-09-07 05:00] VITALS: BP 145/67
[2019-09-07] MEDS: MEGESTROL ACETATE 20 MG TAB PO SCH ×3 (06:42→21:45)
[2019-09-07] MEDS: LEVOTHYROXINE SODIUM 50 MCG TAB PO SCH (06:43)
[2019-09-07] MEDS: SUCRALFATE 1 GM/10 ML ORAL SUSP PO SCH ×4 (06:43→21:44)
[2019-09-07] MEDS: GABAPENTIN 100 MG CAP PO SCH ×3 (06:43→21:45)
--- NOTE | 2019-09-07 07:30 | NUR ---
Opening Shift Note Assumed care of patient, awake and alert. No S/S of distress/SOB or pain. For safety patients bed is locked, in the lowest position with 2 side rails up. Instructed on POC and to call for assist PRN, will continue to monitor for changes in condition. Patients at bedside.
[2019-09-07] MEDS ORDERED: POTASSIUM CHL 20 Meq TABLET PO ONE (08:30)
[2019-09-07] MEDS ORDERED: FUROSEMIDE 40 MG/4 ML VIAL IV ONE (08:30)
[2019-09-07] MEDS: Ensure Enlive Strawberry 8oz Bottle PO SCH (08:48)
[2019-09-07 09:00] VITALS: BP 126/61
[2019-09-07] MEDS: PANTOPRAZOLE 40 MG TAB PO SCH ×2 (09:58→21:45)
[2019-09-07] MEDS: APIXABAN 5 MG TAB PO SCH ×2 (09:58→21:44)
[2019-09-07] MEDS: METOPROLOL TARTRATE 25 MG TAB PO SCH ×2 (09:59→22:00)
[2019-09-07] MEDS: BENAZEPRIL HCL 10 MG TAB PO SCH (10:00)
[2019-09-07] MEDS: AMIODARONE HCL 200 MG TAB PO SCH (10:00)
[2019-09-07 13:01] VITALS: BP 147/72
[2019-09-07 17:50] VITALS: BP 116/76
--- NOTE | 2019-09-07 19:30 | NUR ---
Opening Shift Note Assumed care of patient, awake and alert. Sitter on bedside. No S/S of distress/SOB or pain. Instructed on POC and to call for assist PRN, will continue to monitor for changes Q1hr and PRN.
--- NOTE | 2019-09-07 19:30 | NUR ---
AIDEE ESPINOSA INFORMED ME OF PATIENTS RIGHT BUTTOCK THAT IS OPEN. PATIENT HAS HAD FREQUENT LOOSE BOWEL MOVEMENTS TODAY. CLEANSED WITH WOUND CLEANSER AND PLACED Z GAURD ON WITH OPTIFOAM TO COVER. TOOK PICTURES AND NOTIFIED ONCOMING NURSE.
[2019-09-07] MEDS: HYDROcodone-ACET 5/325MG TAB PO PRN (21:45)
--- NOTE | 2019-09-07 22:00 | NUR ---
Pt refusing to turned. Motivation is the pain in the chest when she coughs. Also her on the phone asked me not to turn her They will take care of the wound when she is home.
[2019-09-08] MEDS: LEVALBUTEROL HCL 1.25 MG/3 ML NEB NEB SCH ×4 (00:09→19:10)
[2019-09-08] MEDS: IPRATROPIUM BROM 0.5 MG/2.5ML INH SOL NEB SCH ×4 (00:09→19:10)
[2019-09-08] MEDS: GABAPENTIN 100 MG CAP PO SCH ×3 (06:56→21:33)
[2019-09-08] MEDS: LEVOTHYROXINE SODIUM 50 MCG TAB PO SCH (06:56)
[2019-09-08] MEDS: SUCRALFATE 1 GM/10 ML ORAL SUSP PO SCH ×4 (06:56→21:33)
[2019-09-08] MEDS: MEGESTROL ACETATE 20 MG TAB PO SCH ×3 (06:56→21:33)
--- NOTE | 2019-09-08 07:40 | NUR ---
Opening Shift Note Assumed care of patient, awake and alert. No S/S of distress/SOB or pain. Instructed on POC and to call for assist PRN, will continue to monitor for changes Q1hr and PRN. Bed locked in lowest position with two side rails up and call light in reach.
[2019-09-08] MEDS: PROMETHAZINE-DM 5 ML ORAL SYRUP PO PRN (07:48)
[2019-09-08 08:00] VITALS: BP 105/50
[2019-09-08] MEDS: Ensure Enlive Strawberry 8oz Bottle PO SCH ×2 (08:00→17:08)
[2019-09-08 09:00] VITALS: BP 104/50
[2019-09-08] MEDS: AMIODARONE HCL 200 MG TAB PO SCH (09:45)
[2019-09-08] MEDS: APIXABAN 5 MG TAB PO SCH ×2 (09:45→21:33)
[2019-09-08] MEDS: METOPROLOL TARTRATE 25 MG TAB PO SCH ×2 (09:46→21:52)
[2019-09-08] MEDS: PANTOPRAZOLE 40 MG TAB PO SCH ×2 (09:46→21:33)
[2019-09-08] MEDS: BENAZEPRIL HCL 10 MG TAB PO SCH (09:46)
--- NOTE | 2019-09-08 11:00 | NUR ---
DR ROONEY ROUNDING ORDERS RECEIVED WILL CARRY OUT.
--- NOTE | 2019-09-08 11:10 | NUR ---
WOUND CARE NOTE: New wound consult received regarding "open area to buttocks" that are noted upon assessment. Bedside nurse took photograph of patient's wound upon discovery for reference. Patient is on wound care list due to anterior chest skin tear. Patient is resting in bed in Rm. 280A. She's awake, alert and follow simple direction. Patient is able to assist in turning and repositioning however, reports of refusal in turning most of the time. Patient's Amari score is 20. Skin assessment done with the help of nurse assistant finance manager at bedside. Noted patient's L gluteal has 3x2cm dark red pressure injury with 1.5x1.8 cm open partial thickness wound to proximal aspect of wound. Wound is dark red with bright red non-blanchable surrounding skin. L gluteal wound is consistent with Stage 2 pressure injury. Lora care given, applied Z Guard cream and covered with Opti foam gentle dressing. Patient's anterior chest continue to display 3x3cm skin tear. Cleansed skin tear and changed the dressing as MD ordered. Patient and family education given regarding skin/wound care, verbalized understanding. Repositioned patient for comfort facing her Rt side, redistributed pressure points with pillows. Patient given chair cushion. Dr. Lake at bedside to see patient and made aware of patient's L gluteal pressure injury. RECOMMENDATIONS: Nursing to continue with wound dressing change per MD order,continue with skin/wound plan of care, continue monitoring by wound care while patient is hospitalized. Addendum: 09/08/19 at 1547 by Rowena Costello RN Amended: Links added.
[2019-09-08] MEDS ORDERED: PANT40T PO (12:06)
[2019-09-08] MEDS ORDERED: SUCR1TAB38 OR (12:06)
[2019-09-08] MEDS ORDERED: LEV50T PO (12:06)
[2019-09-08 13:00] VITALS: BP 109/53
[2019-09-08] MEDS ORDERED: NYS5LQ MT (13:15)
[2019-09-08] MEDS ORDERED: NYSTATIN (MOUTH-THROAT) 500,000 UNITS/5 ML SUSP MT ONE (13:15)
[2019-09-08 17:00] VITALS: BP 117/55
[2019-09-08] MEDS: NYSTATIN (MOUTH-THROAT) 500,000 UNITS/5 ML SUSP MT SCH ×2 (17:07→21:33)
--- NOTE | 2019-09-08 19:00 | NUR ---
Opening Shift Note Assumed care of patient, awake and alert.Sitter on bedside. No S/S of distress/SOB or pain. Instructed on POC and to call for assist PRN, will continue to monitor for changes Q1hr and PRN.
[2019-09-08 22:00] VITALS: BP 124/57
[2019-09-08] MEDS: HYDROcodone-ACET 5/325MG TAB PO PRN (22:34)
[2019-09-09] MEDS: IPRATROPIUM BROM 0.5 MG/2.5ML INH SOL NEB SCH ×3 (00:40→12:46)
[2019-09-09] MEDS: LEVALBUTEROL HCL 1.25 MG/3 ML NEB NEB SCH ×3 (00:40→12:46)
[2019-09-09 01:15] VITALS: BP 124/57
[2019-09-09 05:00] VITALS: BP 134/65
[2019-09-09] MEDS: NYSTATIN (MOUTH-THROAT) 500,000 UNITS/5 ML SUSP MT SCH ×2 (07:03→12:04)
[2019-09-09] MEDS: SUCRALFATE 1 GM/10 ML ORAL SUSP PO SCH ×2 (07:03→12:04)
[2019-09-09] MEDS: PROMETHAZINE-DM 5 ML ORAL SYRUP PO PRN ×2 (07:03→10:48)
[2019-09-09] MEDS: LEVOTHYROXINE SODIUM 50 MCG TAB PO SCH (07:03)
[2019-09-09] MEDS: GABAPENTIN 100 MG CAP PO SCH ×2 (07:04→14:46)
[2019-09-09] MEDS: MEGESTROL ACETATE 20 MG TAB PO SCH ×2 (07:04→14:45)
[2019-09-09] MEDS: Ensure Enlive Strawberry 8oz Bottle PO SCH (08:42)
[2019-09-09 09:04] VITALS: BP 121/54
[2019-09-09] MEDS: AMIODARONE HCL 200 MG TAB PO SCH (09:38)
[2019-09-09] MEDS: APIXABAN 5 MG TAB PO SCH (09:39)
[2019-09-09] MEDS: METOPROLOL TARTRATE 25 MG TAB PO SCH (09:39)
[2019-09-09] MEDS: BENAZEPRIL HCL 10 MG TAB PO SCH (09:40)
[2019-09-09] MEDS: PANTOPRAZOLE 40 MG TAB PO SCH (09:40)
[2019-09-09 13:00] VITALS: BP 120/71
--- NOTE | 2019-09-09 14:03 | NUR ---
Discharge planning per consult,patient has orders to dc to SNF. Referral sent to [facility] and [facility]. Both accepted. Patient chose [facility] [phone]. Placed a follow up call, spoke with Tracie and was advised that they will accept this patient into room [address] Reilly. Transportation was arranged with [facility] [phone] and the scheduled medicinal plant picker time is for 5:45pm. Nurse Bosch was advised of dc plan. Addendum: 09/09/19 at 1406 by TOD ANGEL Amended: Links added.
[2019-09-09 16:26] VITALS: BP 121/54
[2019-09-09 17:00] VITALS: BP 110/47
--- NOTE | 2019-09-09 17:42 | NUR ---
Discharge instructions given as ordered. All questions and concerns addressed. Patient verbalized understanding. IV removed with catheter intact, pressure dressing applied. Medication reconciliation form completed and copy given to patient. Telemetry unit returned to ICU. Report given to at [facility].. Patient transported by [facility] with all personal belongings. No distress noted at time of departure.
== END 2019-09-09 17:55 | DRG 286 ==
LOC: EDBD 09:36 → ER 09:36 → OVERFLOW 09:37 → TELE-WESTW 08-31 10:16
PROVIDERS: ADMIT Nurse Practitioner Acute Care; ATTEND Internal Medicine
PROC: B2111ZZ Fluoroscopy of Multiple Coronary Arteries using Low Osmolar Contrast (ICD-10-PCS; principal; 2019-09-01)
PROC: B2151ZZ Fluoroscopy of Left Heart using Low Osmolar Contrast (ICD-10-PCS; 2019-09-01)
PROC: 4A023N7 Measurement of Cardiac Sampling and Pressure, Left Heart, Percutaneous Approach (ICD-10-PCS; 2019-09-01)
DX: I51.81 Takotsubo syndrome (principal); I49.01 Ventricular fibrillation; I46.9 Cardiac arrest, cause unspecified; I50.32 Chronic diastolic (congestive) heart failure; D68.59 Other primary thrombophilia; E87.1 Hypo-osmolality and hyponatremia; N39.0 Urinary tract infection, site not specified; I42.9 Cardiomyopathy, unspecified; B37.0 Candidal stomatitis; J44.0 Chronic obstructive pulmonary disease with (acute) lower respiratory infection; I48.0 Paroxysmal atrial fibrillation; J44.9 Chronic obstructive pulmonary disease, unspecified; E87.6 Hypokalemia; D64.9 Anemia, unspecified; E03.9 Hypothyroidism, unspecified; E83.51 Hypocalcemia; J20.9 Acute bronchitis, unspecified; Z88.6 Allergy status to analgesic agent; Z88.8 Allergy status to other drugs, medicaments and biological substances; E78.5 Hyperlipidemia, unspecified; Z66 Do not resuscitate; Z79.899 Other long term (current) drug therapy; Z79.01 Long term (current) use of anticoagulants; Z90.710 Acquired absence of both cervix and uterus
CPT/HCPCS: 36415; 51702; 71045; 74247; 80048; 80053; 81001; 83605; 83735; 84443; 84450; 84460; 84484; 85025; 86141; 87040; 87081; 87086; 87804; 92610; 93005; 93306; 93458; 94640; 96361; 96365; 96366; 96367; 96368; 96375; 97116; 97163; 97530; 99152; 99291; G0378; J0330; J0696; J1956; J2001; J2250; J2405; J3480; J3490

== ENCOUNTER 2019-10-30 12:13 | Inpatient (IN) | payer MEDICARE, BC ==
[~2019-10-30] VITALS: Ht 160 cm; Wt 71.5 kg
[~2019-10-30 12:13] MED LIST changes: +D-MA500C PO; -FAM20T PO; +GABA100C9 PO; -GABA300C10 PO; +NYS5LQ MT; +PANT40T PO; +SACC1CAP3 PO; +SERT25TA84 PO; +SUCR1TAB38 OR
[2019-10-30] MEDS ORDERED: NITROGLYCERIN 0.4 MG SL TAB SL PRN (13:45)
[2019-10-30] MEDS ORDERED: MORPHINE SULFATE 4 MG/ML SYR/VIAL IV PRN (13:45)
[2019-10-30] MEDS ORDERED: MORPHINE SULF INJ 2 MG/ML SYRINGE 1ML IV PRN (13:45)
[2019-10-30] MEDS ORDERED: ONDANSETRON HCL 4 MG/2 ML VIAL IV PRN (13:45)
[2019-10-30] MEDS ORDERED: traMADol HCL 50 MG TAB PO PRN (13:45)
[2019-10-30] MEDS ORDERED: ACETAMINOPHEN 500 MG TAB PO PRN (13:45)
[2019-10-30 13:53] LABS: Basophils # (auto) 0.1 uL; Eosinophils # (auto) 0.2 uL; Lymphocytes # (auto) 1.2 uL; Monocytes # (auto) 0.8 uL; Red Cell Distribution Width 16.5 % (11.8-14.3)
[2019-10-30 13:55] LABS: Basophils % (auto) 0.9 % (0.0-2.0); Eosinophils % (auto) 2.4 % (0.0-7.0); Hematocrit 24.4 % (36.0-46.0); Hemoglobin 8.1 g/dL (12.2-16.2); Lymphocytes % (auto) 18.6 % (10.0-50.0); Mean Corpuscular Hemoglobin 33.1 pg (28.0-32.0); Mean Corpuscular Hgb Conc. 33.3 g/dL (32.0-36.0); Mean Corpuscular Volume 99.4 fL (80.0-100.0); Monocytes % (auto) 12.1 % (0.0-12.0); Neutrophils # (auto) 4.4 uL; Platelet Count (auto) 363 10^3/uL (140-450); Red Blood Cells 2.46 10^6/uL (4.0-5.20); White Blood Cell 6.6 10^3/uL (4.4-10.8)
[2019-10-30 14:09] LABS: INR 1.23 (0.9-1.15)
[2019-10-30 14:15] LABS: Albumin 2.7 g/dL (3.4-5.0); Calcium 8.2 mg/dL (8.5-10.1); Potassium 4.1 mmol/L (3.5-5.1)
[2019-10-30] MEDS: D MANNOSE 1000 MG PO SCH ×2 (14:15→21:42)
[2019-10-30 14:18] LABS: BUN/Creatinine Ratio 12.6; Bilirubin, Total 0.3 mg/dL (0.2-1.0)
[2019-10-30] MEDS ORDERED: ASCO500T11 PO (14:59)
[2019-10-30] MEDS ORDERED: FERR-20 PO (14:59)
[2019-10-30] MEDS ORDERED: ZINC220C8 PO (14:59)
[2019-10-30] MEDS ORDERED: BENA10TA9 PO (14:59)
[2019-10-30] MEDS ORDERED: ACET-1156 PO (14:59)
[2019-10-30] MEDS ORDERED: MULTCAP45 PO (15:01)
[2019-10-30] MEDS ORDERED: ONDA-144 PO (15:03)
[2019-10-30] MEDS: GABAPENTIN 100 MG CAP PO SCH ×2 (16:40→22:00)
[2019-10-30] MEDS: SUCRALFATE 1 GM TAB PO SCH ×2 (16:45→22:00)
[2019-10-30 17:00] VITALS: BP 149/51
[2019-10-30 19:09] LABS: Hemoglobin 7.6 g/dL (12.2-16.2)
[2019-10-30 20:57] VITALS: BP 149/51
[2019-10-30] MEDS: BUDESONIDE (INHALATION) 0.5 MG/2 ML NEB NEB SCH (21:40)
[2019-10-30] MEDS ORDERED: METOPROLOL SUCCINATE XL 50 MG TAB PO SCH ×2 (22:00)
[2019-10-30] MEDS ORDERED: FLUTICASONE PROPIONATE 220 MCG INH SCH (22:00)
[2019-10-30] MEDS ORDERED: PATIENTS OWN MEDICATION (Metoprolol Succinate (Toprol Xl) 1 TAB) PO SCH (22:00)
[2019-10-30] MEDS: PANTOPRAZOLE 40 MG TAB PO SCH (22:01)
[2019-10-30 23:00] VITALS: BP 117/50
[2019-10-31 01:19] LABS: Hematocrit 20.8 % (36.0-46.0)
[2019-10-31 05:46] VITALS: BP 113/55
[2019-10-31] MEDS: GABAPENTIN 100 MG CAP PO SCH ×3 (06:25→21:43)
[2019-10-31] MEDS: SUCRALFATE 1 GM TAB PO SCH ×3 (06:33→21:43)
[2019-10-31] MEDS: LEVOTHYROXINE SODIUM 50 MCG TAB PO SCH (06:33)
[2019-10-31 07:02] LABS: Hemoglobin 7.1 g/dL (12.2-16.2)
[2019-10-31 07:05] LABS: Hematocrit 20.6 % (36.0-46.0)
[2019-10-31 09:00] VITALS: BP 126/57
[2019-10-31] MEDS: D MANNOSE 1000 MG PO SCH ×2 (10:00→21:43)
[2019-10-31] MEDS ORDERED: POTASSIUM CHLORIDE 50 MEQ PO SCH (10:00)
[2019-10-31] MEDS ORDERED: METOLAZONE 2.5 MG PO SCH (10:00)
[2019-10-31] MEDS ORDERED: PATIENTS OWN MEDICATION (Sertraline Hcl (Zoloft) 1 TAB) PO SCH (10:00)
[2019-10-31] MEDS: AMIODARONE HCL 200 MG TAB PO SCH (10:07)
[2019-10-31] MEDS: FUROSEMIDE 40 MG TAB PO SCH (10:07)
[2019-10-31] MEDS: PANTOPRAZOLE 40 MG TAB PO SCH ×2 (10:09→21:43)
[2019-10-31] MEDS: POTASSIUM CHL 10 Meq TABLET PO SCH (10:09)
[2019-10-31] MEDS: SERTRALINE HCL 50 MG TAB PO SCH (10:09)
[2019-10-31] MEDS: metOLazone 5 MG TAB PO SCH (10:10)
[2019-10-31] MEDS: BUDESONIDE (INHALATION) 0.5 MG/2 ML NEB NEB SCH ×2 (10:44→17:55)
[2019-10-31 13:00] VITALS: BP 114/52
[2019-10-31 14:23] LABS: Hematocrit 26.6 % (36.0-46.0); Hemoglobin 8.4 g/dL (12.2-16.2)
[2019-10-31 16:08] LABS: Urine Bacteria FEW /hpf (None Seen); Urine Blood Negative /uL (Negative); Urine Specific Gravity 1.006 (1.001-1.035); Urine WBC 109 /hpf (0 - 5)
[2019-10-31 17:00] VITALS: BP 102/49
[2019-10-31] MEDS ORDERED: MORPHINE SULF INJ 2 MG/ML SYRINGE 1ML IV PRN (18:00)
[2019-10-31] MEDS: METOPROLOL TARTRATE 25 MG TAB PO SCH (21:44)
[2019-10-31 22:00] VITALS: BP 117/55
[2019-10-31 23:07] LABS: Hematocrit 21.8 % (36.0-46.0); Hemoglobin 7.4 g/dL (12.2-16.2)
[2019-11-01] VITALS (7 sets, daily range): BP systolic 130–137; BP diastolic 53–58
[2019-11-01] MEDS: GABAPENTIN 100 MG CAP PO SCH ×3 (05:51→21:08)
[2019-11-01] MEDS: SUCRALFATE 1 GM TAB PO SCH ×4 (06:23→21:08)
[2019-11-01] MEDS: LEVOTHYROXINE SODIUM 50 MCG TAB PO SCH (06:24)
[2019-11-01 06:38] LABS: Basophils # (auto) 0.1 uL; Eosinophils # (auto) 0.2 uL; Hemoglobin 7.3 g/dL (12.2-16.2); Lymphocytes # (auto) 1.4 uL; Mean Corpuscular Hemoglobin 34.6 pg (28.0-32.0); Neutrophils # (auto) 3.5 uL; Nucleated Red Blood Cells % 0.1 %; Red Blood Cells 2.11 10^6/uL (4.0-5.20)
[2019-11-01 06:40] LABS: Basophils % (auto) 1.1 % (0.0-2.0); Eosinophils % (auto) 3.3 % (0.0-7.0); Mean Corpuscular Hgb Conc. 34.8 g/dL (32.0-36.0); Mean Corpuscular Volume 99.6 fL (80.0-100.0); Monocytes % (auto) 16.2 % (0.0-12.0); Neutrophils % (auto) 56.4 % (37.0-80.0); Platelet Count (auto) 320 10^3/uL (140-450); Red Cell Distribution Width 16.6 % (11.8-14.3); White Blood Cell 6.1 10^3/uL (4.4-10.8)
[2019-11-01 06:49] LABS: BUN/Creatinine Ratio 11.5; Calcium 8.2 mg/dL (8.5-10.1); Potassium 4.4 mmol/L (3.5-5.1)
[2019-11-01] MEDS: POTASSIUM CHL 10 Meq TABLET PO SCH (10:00)
[2019-11-01] MEDS: D MANNOSE 1000 MG PO SCH ×2 (10:00→22:00)
[2019-11-01] MEDS: FUROSEMIDE 40 MG TAB PO SCH (10:00)
[2019-11-01] MEDS: METOPROLOL TARTRATE 25 MG TAB PO SCH ×2 (10:00→21:09)
[2019-11-01] MEDS: BUDESONIDE (INHALATION) 0.5 MG/2 ML NEB NEB SCH ×2 (10:27→22:19)
[2019-11-01] MEDS: PANTOPRAZOLE 40 MG TAB PO SCH ×2 (10:34→21:10)
[2019-11-01] MEDS: AMIODARONE HCL 200 MG TAB PO SCH (10:34)
[2019-11-01] MEDS: cefTRIAXone 1GM/50ML D5W 50 ML IV SCH (10:35)
[2019-11-01] MEDS: SERTRALINE HCL 50 MG TAB PO SCH (10:35)
[2019-11-01 13:50] LABS: Hematocrit 23.5 % (36.0-46.0)
[2019-11-01] MEDS ORDERED: FUROSEMIDE 40 MG/4 ML VIAL IV ONE (17:30)
[2019-11-02] VITALS (7 sets, daily range): BP systolic 108–145; BP diastolic 48–67
[2019-11-02 05:37] LABS: Hemoglobin 8.1 g/dL (12.2-16.2)
[2019-11-02 05:39] LABS: Hematocrit 24.4 % (36.0-46.0)
[2019-11-02] MEDS: LEVOTHYROXINE SODIUM 50 MCG TAB PO SCH (06:05)
[2019-11-02] MEDS: SUCRALFATE 1 GM TAB PO SCH ×4 (06:06→21:26)
[2019-11-02] MEDS: GABAPENTIN 100 MG CAP PO SCH ×3 (06:06→21:27)
[2019-11-02] MEDS: cefTRIAXone 1GM/50ML D5W 50 ML IV SCH ×2 (09:00→10:19)
[2019-11-02] MEDS ORDERED: GOLYTELY 4L KIT PO ONE (10:00)
[2019-11-02] MEDS: D MANNOSE 1000 MG PO SCH ×2 (10:00→21:25)
[2019-11-02] MEDS: PANTOPRAZOLE 40 MG TAB PO SCH ×2 (10:19→21:26)
[2019-11-02] MEDS: FUROSEMIDE 40 MG/4 ML VIAL IV SCH (10:19)
[2019-11-02] MEDS: SERTRALINE HCL 50 MG TAB PO SCH (10:19)
[2019-11-02] MEDS: POTASSIUM CHL 10 Meq TABLET PO SCH (10:21)
[2019-11-02] MEDS: METOPROLOL TARTRATE 25 MG TAB PO SCH ×2 (10:21→21:27)
[2019-11-02] MEDS ORDERED: ERTAPENEM SOD INJ 1 GM in SODIUM CHL 0.9% 50 ML IV ONE (10:30)
[2019-11-02] MEDS: BUDESONIDE (INHALATION) 0.5 MG/2 ML NEB NEB SCH ×2 (11:14→22:39)
[2019-11-02 22:28] LABS: Hemoglobin 7.5 g/dL (12.2-16.2)
[2019-11-02 22:29] LABS: Hematocrit 21.9 % (36.0-46.0)
[2019-11-03 04:30] VITALS: BP 147/65
[2019-11-03] MEDS: GABAPENTIN 100 MG CAP PO SCH ×3 (06:02→22:23)
[2019-11-03] MEDS: SUCRALFATE 1 GM TAB PO SCH ×4 (06:02→22:23)
[2019-11-03] MEDS: LEVOTHYROXINE SODIUM 50 MCG TAB PO SCH (06:03)
[2019-11-03 08:00] VITALS: BP 101/47
[2019-11-03 09:00] VITALS: BP 101/47
[2019-11-03] MEDS ORDERED: GOLYTELY 4L KIT PO ONE (10:00)
[2019-11-03] MEDS: POTASSIUM CHL 10 Meq TABLET PO SCH (10:00)
[2019-11-03] MEDS: D MANNOSE 1000 MG PO SCH ×2 (10:00→22:00)
[2019-11-03] MEDS: metOLazone 5 MG TAB PO SCH (10:00)
[2019-11-03] MEDS: BUDESONIDE (INHALATION) 0.5 MG/2 ML NEB NEB SCH ×2 (10:09→22:05)
[2019-11-03] MEDS: PANTOPRAZOLE 40 MG TAB PO SCH ×2 (10:46→22:23)
[2019-11-03] MEDS: ERTAPENEM SOD INJ 1 GM in SODIUM CHL 0.9% 50 ML IV SCH (10:46)
[2019-11-03] MEDS: METOPROLOL TARTRATE 25 MG TAB PO SCH ×2 (10:47→22:23)
[2019-11-03] MEDS: FUROSEMIDE 40 MG/4 ML VIAL IV SCH (10:47)
[2019-11-03] MEDS: SERTRALINE HCL 50 MG TAB PO SCH (10:47)
[2019-11-03 13:00] VITALS: BP 136/57
[2019-11-03 13:43] LABS: BUN/Creatinine Ratio 12.1; Calcium 8.9 mg/dL (8.5-10.1); Potassium 4.3 mmol/L (3.5-5.1)
[2019-11-03 13:44] LABS: % Iron Saturation 31.3 % (15-50)
[2019-11-03 14:52] LABS: Basophils # (auto) 0.1 uL; Basophils % (auto) 1.2 % (0.0-2.0); Eosinophils # (auto) 0.3 uL; Eosinophils % (auto) 4.2 % (0.0-7.0); Hematocrit 29.3 % (36.0-46.0); Hemoglobin 9.7 g/dL (12.2-16.2); Lymphocytes # (auto) 1.2 uL; Lymphocytes % (auto) 15.7 % (10.0-50.0); Mean Corpuscular Hemoglobin 33.7 pg (28.0-32.0); Mean Corpuscular Hgb Conc. 33.2 g/dL (32.0-36.0); Mean Corpuscular Volume 101.5 fL (80.0-100.0); Neutrophils # (auto) 4.9 uL; Neutrophils % (auto) 65.9 % (37.0-80.0); Nucleated Red Blood Cells % 0.1 %; Platelet Count (auto) 379 10^3/uL (140-450); Red Blood Cells 2.89 10^6/uL (4.0-5.20); Red Cell Distribution Width 17.4 % (11.8-14.3); White Blood Cell 7.4 10^3/uL (4.4-10.8)
[2019-11-03 17:00] VITALS: BP 131/72
[2019-11-03 23:41] VITALS: BP 141/73
[2019-11-04] VITALS (8 sets, daily range): BP systolic 106–144; BP diastolic 43–66
[2019-11-04] MEDS: SUCRALFATE 1 GM TAB PO SCH ×4 (06:40→21:50)
[2019-11-04] MEDS: GABAPENTIN 100 MG CAP PO SCH ×3 (06:40→21:50)
[2019-11-04] MEDS: LEVOTHYROXINE SODIUM 50 MCG TAB PO SCH (06:41)
[2019-11-04] MEDS: BUDESONIDE (INHALATION) 0.5 MG/2 ML NEB NEB SCH ×2 (06:55→22:40)
[2019-11-04 07:09] LABS: Hematocrit 21.6 % (36.0-46.0); Hemoglobin 7.4 g/dL (12.2-16.2)
[2019-11-04 07:24] LABS: INR 1.13 (0.9-1.15); Partial Thromboplastin Time 27.1 sec (23.64-32.05)
[2019-11-04] MEDS: PANTOPRAZOLE 40 MG TAB PO SCH ×2 (10:00→21:50)
[2019-11-04] MEDS: D MANNOSE 1000 MG PO SCH ×2 (10:00→21:50)
[2019-11-04] MEDS: METOPROLOL TARTRATE 25 MG TAB PO SCH ×2 (10:00→21:50)
[2019-11-04] MEDS: SERTRALINE HCL 50 MG TAB PO SCH (10:00)
[2019-11-04] MEDS: FUROSEMIDE 40 MG/4 ML VIAL IV SCH (13:58)
[2019-11-04] MEDS: ERTAPENEM SOD INJ 1 GM in SODIUM CHL 0.9% 50 ML IV SCH (14:20)
[2019-11-05 04:56] VITALS: BP 141/55
[2019-11-05] MEDS: GABAPENTIN 100 MG CAP PO SCH ×3 (05:49→21:31)
[2019-11-05] MEDS: SUCRALFATE 1 GM TAB PO SCH ×4 (05:50→21:31)
[2019-11-05] MEDS: LEVOTHYROXINE SODIUM 50 MCG TAB PO SCH (05:50)
[2019-11-05 06:10] LABS: Hematocrit 25.8 % (36.0-46.0); Mean Corpuscular Hemoglobin 34.8 pg (28.0-32.0); Mean Corpuscular Hgb Conc. 35.1 g/dL (32.0-36.0); Mean Corpuscular Volume 99.1 fL (80.0-100.0); Platelet Count (auto) 258 10^3/uL (140-450); Red Cell Distribution Width 15.9 % (11.8-14.3); White Blood Cell 4.4 10^3/uL (4.4-10.8)
[2019-11-05 06:15] LABS: Band Neutrophils % (manual) 0; Basophils % (manual) 0 (0.0-2.0); Blast Cells 0; Metamyelocytes % 0; Myelocytes % 0; Promyelocytes % 0; Reactive Lymphocytes 0
[2019-11-05 06:18] LABS: Calcium 8.2 mg/dL (8.5-10.1); Potassium 3.1 mmol/L (3.5-5.1)
[2019-11-05 06:22] LABS: BUN/Creatinine Ratio 14.5
[2019-11-05 06:51] LABS: Eosinophils % (manual) 5 (0-7); Lymphocytes % (manual) 22 (10.0-50.0); Monocytes % (manual) 11 (0-12)
[2019-11-05 09:00] VITALS: BP_SYST 120; BP_SYST 136; BP_DIAS 57; BP_DIAS 78
[2019-11-05] MEDS ORDERED: POTASSIUM EFFERVESENT TAB 25 MEQ PO ONE (09:30)
[2019-11-05] MEDS: METOPROLOL TARTRATE 25 MG TAB PO SCH ×2 (10:00→21:40)
[2019-11-05] MEDS: SERTRALINE HCL 50 MG TAB PO SCH (10:00)
[2019-11-05] MEDS: D MANNOSE 1000 MG PO SCH ×2 (10:00→21:41)
[2019-11-05] MEDS: FUROSEMIDE 40 MG/4 ML VIAL IV SCH ×2 (10:12→17:21)
[2019-11-05] MEDS: PANTOPRAZOLE 40 MG TAB PO SCH ×2 (10:13→21:31)
[2019-11-05] MEDS: ERTAPENEM SOD INJ 1 GM in SODIUM CHL 0.9% 50 ML IV SCH ×2 (10:14→17:21)
[2019-11-05] MEDS: BUDESONIDE (INHALATION) 0.5 MG/2 ML NEB NEB SCH ×2 (10:37→21:45)
[2019-11-05 17:00] VITALS: BP 134/62
[2019-11-05] MEDS: APIXABAN 2.5 MG TAB PO SCH (21:31)
[2019-11-05 22:00] VITALS: BP 127/55
[2019-11-06 04:58] VITALS: BP 144/64
[2019-11-06] MEDS: GABAPENTIN 100 MG CAP PO SCH ×2 (06:09→15:11)
[2019-11-06] MEDS: LEVOTHYROXINE SODIUM 50 MCG TAB PO SCH (06:09)
[2019-11-06] MEDS: SUCRALFATE 1 GM TAB PO SCH ×3 (06:09→17:00)
[2019-11-06 08:52] VITALS: BP 156/59
[2019-11-06] MEDS ORDERED: APIX2.5T PO (09:34)
[2019-11-06] MEDS: BUDESONIDE (INHALATION) 0.5 MG/2 ML NEB NEB SCH (09:55)
[2019-11-06] MEDS: D MANNOSE 1000 MG PO SCH (10:00)
[2019-11-06] MEDS: METOPROLOL TARTRATE 25 MG TAB PO SCH (10:07)
[2019-11-06] MEDS: SERTRALINE HCL 50 MG TAB PO SCH (10:07)
[2019-11-06] MEDS: APIXABAN 2.5 MG TAB PO SCH (10:08)
[2019-11-06] MEDS: PANTOPRAZOLE 40 MG TAB PO SCH (10:08)
[2019-11-06] MEDS: FUROSEMIDE 40 MG/4 ML VIAL IV SCH (10:09)
[2019-11-06] MEDS ORDERED: LOPERAMIDE HCL 2 MG CAP PO ONE (10:30)
[2019-11-06] MEDS: ERTAPENEM SOD INJ 1 GM in SODIUM CHL 0.9% 50 ML IV SCH (11:34)
[2019-11-06 12:44] VITALS: BP 159/59
[2019-11-06 13:00] VITALS: BP 110/48
[2019-11-06 14:29] LABS: Hematocrit 29.9 % (36.0-46.0); Mean Corpuscular Hemoglobin 33.7 pg (28.0-32.0); Mean Corpuscular Hgb Conc. 33.5 g/dL (32.0-36.0); Mean Corpuscular Volume 100.4 fL (80.0-100.0); Platelet Count (auto) 255 10^3/uL (140-450); Red Blood Cells 2.98 10^6/uL (4.0-5.20); Red Cell Distribution Width 16.1 % (11.8-14.3)
[2019-11-06 14:32] LABS: Band Neutrophils % (manual) 0; Basophils % (manual) 0 (0.0-2.0); Blast Cells 0; Metamyelocytes % 0; Myelocytes % 0; Promyelocytes % 0; Reactive Lymphocytes 0
[2019-11-06 14:44] LABS: Eosinophils % (manual) 5 (0-7); Lymphocytes % (manual) 22 (10.0-50.0); Monocytes % (manual) 16 (0-12)
[2019-11-06 16:32] VITALS: BP 110/48
[2019-11-06 17:00] VITALS: BP 134/59
== END 2019-11-06 17:34 | DRG 811 ==
LOC: EDBD 12:13 → ER 12:13 → TELE-DOU 12:14 → TELE-EAST 15:30 → EAST 11-04 10:29 → TELE-EAST 11-04 10:32
PROVIDERS: ADMIT Internal Medicine; ATTEND Internal Medicine Nephrology
PROC: 30233N1 Transfusion of Nonautologous Red Blood Cells into Peripheral Vein, Percutaneous Approach (ICD-10-PCS; principal; 2019-11-04)
DX: D64.9 Anemia, unspecified (principal); I50.23 Acute on chronic systolic (congestive) heart failure; N39.0 Urinary tract infection, site not specified; I11.0 Hypertensive heart disease with heart failure; I65.23 Occlusion and stenosis of bilateral carotid arteries; I48.0 Paroxysmal atrial fibrillation; I25.2 Old myocardial infarction; J44.9 Chronic obstructive pulmonary disease, unspecified; E78.5 Hyperlipidemia, unspecified; E03.9 Hypothyroidism, unspecified; E87.6 Hypokalemia; D69.9 Hemorrhagic condition, unspecified; I27.21 Secondary pulmonary arterial hypertension; B96.20 Unspecified Escherichia coli [E. coli] as the cause of diseases classified elsewhere; Z88.1 Allergy status to other antibiotic agents; Z88.5 Allergy status to narcotic agent; Z88.8 Allergy status to other drugs, medicaments and biological substances; Z90.710 Acquired absence of both cervix and uterus; Z90.49 Acquired absence of other specified parts of digestive tract; Z95.5 Presence of coronary angioplasty implant and graft; Z86.74 Personal history of sudden cardiac arrest; Z79.01 Long term (current) use of anticoagulants; Z79.899 Other long term (current) drug therapy; Z82.49 Family history of ischemic heart disease and other diseases of the circulatory system
CPT/HCPCS: 36223; 36225; 36227; 37215; 93454; 96365; 96367; 96375; 99285; G0278; 36415; 36430; 71045; 80048; 80053; 81001; 82270; 82378; 83010; 83540; 83550; 83615; 83880; 85007; 85014; 85018; 85025; 85027; 85045; 85610; 85652; 85730; 86141; 86850; 86880; 86900; 86901; 86920; 87086; 87088; 87186; 94640; 97110; 97116; 97163; 97530; G0378; J0696; J1335

== ENCOUNTER → 2019-12-03 | Outpatient (CLI) | payer MEDICARE, BC ==
[~2019-12-03] MED LIST changes: +ACET-1156 PO; +APIX2.5T PO; -APIX5TAB PO; +ASCO500T11 PO; +BENA10TA9 PO; -D-MA500C PO; +FERR-20 PO; +MULTCAP45 PO; -NYS5LQ MT; -POTA1TAB61 PO; -SACC1CAP3 PO; +ZINC220C8 PO
== END | disposition home or self-care (01) ==
LOC: Rad HDHVI 13:49
PROVIDERS: ATTEND Internal Medicine Cardiovascular Disease
DX: R07.9 Chest pain, unspecified (principal); R42 Dizziness and giddiness; R00.2 Palpitations
CPT/HCPCS: 93306

== ENCOUNTER 2020-03-17 17:16 | Emergency (ER) | payer MEDICARE, OTHER ==
[~2020-03-17] VITALS: Ht 160 cm; Wt 63.0 kg
[2020-03-17] MEDS ORDERED: MORPHINE SULF INJ 2 MG/ML SYRINGE 1ML IV ONE (19:15)
[2020-03-17] MEDS ORDERED: ONDANSETRON HCL 4 MG/2 ML VIAL IV ONE (19:15)
[2020-03-17 20:24] LABS: Basophils # (auto) 0 10 ^3/uL (0-0.2); Eosinophils # (auto) 0 10 ^3/uL (0-0.8); Eosinophils % (auto) 0.4 % (0.0-7.0); Hemoglobin 11.2 g/dL (12.2-16.2); Monocytes # (auto) 0.7 10 ^3/uL (0-1.3); Neutrophils # (auto) 7.1 10 ^3/uL (1.6-8.6); White Blood Cell 8.9 10^3/uL (4.4-10.8)
[2020-03-17 20:25] LABS: Basophils % (auto) 0.5 % (0.0-2.0); Hematocrit 32.5 % (36.0-46.0); Lymphocytes % (auto) 11.6 % (10.0-50.0); Mean Corpuscular Hemoglobin 34.7 pg (28.0-32.0); Mean Corpuscular Hgb Conc. 34.3 g/dL (32.0-36.0); Mean Corpuscular Volume 101.2 fL (80.0-100.0); Neutrophils % (auto) 79.5 % (37.0-80.0); Platelet Count (auto) 230 10^3/uL (140-450); Red Blood Cells 3.21 10^6/uL (4.0-5.20); Red Cell Distribution Width 13.9 % (11.8-14.3)
[2020-03-17 20:39] LABS: Chloride 94 mmol/L (98-107); Sodium 129 mmol/L (136-145)
[2020-03-17 20:45] LABS: Alanine Aminotransferase 21 U/L (13-56); Albumin 2.8 g/dL (3.4-5.0); Anion Gap 9 (5-15); Aspartate Aminotransferase 25 U/L (15-37); BUN/Creatinine Ratio 18.6; Blood Urea Nitrogen 16 mg/dL (7-18); Calcium 8.3 mg/dL (8.5-10.1); Carbon Dioxide 26 mmol/L (21-32); GFR African American 83 mL/min; GFR Non-African American 68 mL/min; Glucose 104 mg/dL (74-106)
[2020-03-17 20:47] LABS: Alkaline Phosphatase 99 U/L (45-117); Bilirubin, Total 0.4 mg/dL (0.2-1.0); Total Protein 6.4 g/dL (6.4-8.2)
[2020-03-17 20:52] LABS: Potassium 2.8 mmol/L (3.5-5.1)
[2020-03-17 21:29] LABS: INR 1.07 (0.9-1.15); Partial Thromboplastin Time 26.2 sec (23.64-32.05)
[2020-03-17] MEDS ORDERED: TETANUS-DIPTH-ACEL PERTUSSIS 0.5ML SYR Tdap IM ONE (22:45)
[2020-03-17] MEDS ORDERED: cefTRIAXone 1GM/50ML D5W 50 ML IV ONE (22:45)
[2020-03-17] MEDS ORDERED: POTASSIUM CHL 20MEQ/100ML 100 ML IV ONE (22:45)
[2020-03-18 02:25] VITALS: BP 112/42
[2020-03-18] MEDS ORDERED: cefTRIAXone 1GM/50ML D5W 50 ML IV ONE (04:30)
== END 2020-03-18 02:47 | disposition short-term general hospital (02) ==
LOC: EDBD 17:16 → ER 17:16
DX: S42.202B Unspecified fracture of upper end of left humerus, initial encounter for open fracture (principal); I11.0 Hypertensive heart disease with heart failure; I50.9 Heart failure, unspecified; J44.9 Chronic obstructive pulmonary disease, unspecified; E87.6 Hypokalemia; I82.402 Acute embolism and thrombosis of unspecified deep veins of left lower extremity; E78.5 Hyperlipidemia, unspecified; I25.2 Old myocardial infarction; Z98.51 Tubal ligation status; Z98.61 Coronary angioplasty status; W01.0XXA Fall on same level from slipping, tripping and stumbling without subsequent striking against object, initial encounter; Y93.89 Activity, other specified; Y92.89 Other specified places as the place of occurrence of the external cause; Y99.8 Other external cause status
CPT/HCPCS: 36415; 73060; 80053; 84484; 85025; 85610; 85730; 90471; 90715; 96365; 96366; 96375; 99285; J2270; J2405; J3480

== ENCOUNTER 2020-04-02 12:01 | Inpatient (IN) | payer MEDICARE, OTHER ==
[~2020-04-02] VITALS: Ht 172.7 cm; Wt 70.7 kg
[2020-04-02 13:18] LABS: Urine Bacteria NONE SEEN /hpf (None Seen); Urine Blood Negative /uL (Negative); Urine Hyaline Cast MOD /lpf (0 - 2); Urine Specific Gravity 1.008 (1.001-1.035); Urine WBC 34 /hpf (0 - 5)
[2020-04-02] MEDS ORDERED: SODIUM CHLORIDE 0.9% 2,000 ML IV ONE (13:30)
[2020-04-02] MEDS ORDERED: cefTRIAXone 1GM/50ML D5W 50 ML IV ONE (13:30)
[2020-04-02 13:38] LABS: Mean Corpuscular Hemoglobin 32.8 pg (28.0-32.0); Mean Corpuscular Volume 97.1 fL (80.0-100.0)
[2020-04-02 13:40] LABS: Hematocrit 33.2 % (36.0-46.0); Hemoglobin 11.2 g/dL (12.2-16.2); Mean Corpuscular Hgb Conc. 33.8 g/dL (32.0-36.0); Platelet Count (auto) 628 10^3/uL (140-450); Red Blood Cells 3.42 10^6/uL (4.0-5.20); Red Cell Distribution Width 14.8 % (11.8-14.3); White Blood Cell 16.5 10^3/uL (4.4-10.8)
[2020-04-02 13:43] LABS: Basophils % (manual) 0 (0.0-2.0); Blast Cells 0; Eosinophils % (manual) 0 (0-7); Metamyelocytes % 0; Myelocytes % 0; Promyelocytes % 0; Reactive Lymphocytes 0
[2020-04-02 13:53] LABS: Albumin 2.7 g/dL (3.4-5.0); Anion Gap 14 (5-15); Blood Urea Nitrogen 29 mg/dL (7-18); Carbon Dioxide 27 mmol/L (21-32); Chloride 80 mmol/L (98-107); Glucose 89 mg/dL (74-106); Sodium 121 mmol/L (136-145)
[2020-04-02 14:00] LABS: Alanine Aminotransferase 65 U/L (13-56); Alkaline Phosphatase 195 U/L (45-117); Aspartate Aminotransferase 169 U/L (15-37); BUN/Creatinine Ratio 11.6; GFR African American 24 mL/min; GFR Non-African American 20 mL/min; Total Protein 7.1 g/dL (6.4-8.2)
[2020-04-02 14:04] LABS: Band Neutrophils % (manual) 13; Lymphocytes % (manual) 4 (10.0-50.0); Monocytes % (manual) 4 (0-12)
[2020-04-02] MEDS ORDERED: POTASSIUM CHL 20MEQ/100ML 100 ML IV ONE (14:15)
[2020-04-02] MEDS ORDERED: POTASSIUM CHLORIDE 60 MEQ, LIDOCAINE 1% (LOCAL ANESTH.) 6 ML in SODIUM CHL 0.9% 500 ML IV ONE (14:30)
[2020-04-02] MEDS ORDERED: NITROGLYCERIN 0.4 MG SL TAB SL PRN (15:45)
[2020-04-02] MEDS ORDERED: MORPHINE SULF INJ 2 MG/ML SYRINGE 1ML IV PRN (15:45)
[2020-04-02] MEDS ORDERED: SODIUM CHL 3% 250 ML IV ONE (16:45)
[2020-04-02 22:00] VITALS: BP 119/52
[2020-04-02] MEDS: GABAPENTIN 300 MG CAP PO SCH (22:31)
[2020-04-02] MEDS: APIXABAN 2.5 MG TAB PO SCH (22:31)
[2020-04-02] MEDS: METOPROLOL TARTRATE 25 MG TAB PO SCH (22:31)
[2020-04-03] VITALS (7 sets, daily range): BP systolic 91–123; BP diastolic 30–71
[2020-04-03 07:48] LABS: Alanine Aminotransferase 113 U/L (13-56); Albumin 1.9 g/dL (3.4-5.0); Anion Gap 9 (5-15); Aspartate Aminotransferase 302 U/L (15-37); BUN/Creatinine Ratio 17.3; Blood Urea Nitrogen 28 mg/dL (7-18); Calcium 7.1 mg/dL (8.5-10.1); Carbon Dioxide 23 mmol/L (21-32); Chloride 100 mmol/L (98-107); GFR African American 40 mL/min; GFR Non-African American 33 mL/min; Glucose 84 mg/dL (74-106); Potassium 3.5 mmol/L (3.5-5.1); Sodium 132 mmol/L (136-145)
[2020-04-03 07:50] LABS: Alkaline Phosphatase 155 U/L (45-117); Bilirubin, Total 0.5 mg/dL (0.2-1.0); Total Protein 4.9 g/dL (6.4-8.2)
[2020-04-03] MEDS: BENAZEPRIL HCL 10 MG TAB PO SCH (08:47)
[2020-04-03] MEDS: AMIODARONE HCL 200 MG TAB PO SCH (08:48)
[2020-04-03] MEDS: METOPROLOL TARTRATE 25 MG TAB PO SCH (08:48)
[2020-04-03] MEDS: ACETAMINOPHEN 500 MG TAB PO PRN ×2 (08:48→23:55)
[2020-04-03] MEDS: SERTRALINE HCL 50 MG TAB PO SCH (08:48)
[2020-04-03] MEDS: APIXABAN 2.5 MG TAB PO SCH ×2 (08:48→23:38)
[2020-04-03] MEDS ORDERED: MULTIPLE VITAMIN TAB PO ONE (10:00)
[2020-04-03] MEDS ORDERED: VANCOMYCIN PER PHARMACY 0 MG IV SCH (11:15)
[2020-04-03] MEDS ORDERED: POTASSIUM EFFERVESENT TAB 25 MEQ PO ONE (11:15)
[2020-04-03] MEDS ORDERED: VANCOMYCIN 750mg/250ml 250 ML IV ONE (12:00)
[2020-04-03] MEDS ORDERED: SODIUM CHLORIDE 0.9% 500 ML IV ONE (13:45)
[2020-04-03] MEDS: AZTREONAM 1GM INJ 1 GM in D5W 5% 50 ML IV SCH ×2 (15:12→23:38)
[2020-04-03] MEDS ORDERED: NITR0.4S29 SL (17:08)
[2020-04-03] MEDS ORDERED: AMIO100T3 PO (17:08)
[2020-04-03] MEDS ORDERED: PANT40TA2 PO (17:08)
[2020-04-03] MEDS ORDERED: DOCU1CAP46 PO (17:08)
[2020-04-03] MEDS ORDERED: IPRA0.03 IN (17:08)
[2020-04-03] MEDS ORDERED: LACT1CAP14 PO (17:08)
[2020-04-03] MEDS ORDERED: ACET-1156 PO (17:08)
[2020-04-03] MEDS ORDERED: HYDR-4833 PO (17:08)
[2020-04-03] MEDS ORDERED: LEV100T PO (17:08)
[2020-04-03] MEDS ORDERED: VITA400T4 PO (17:08)
[2020-04-03] MEDS ORDERED: LISI10TA6 PO (17:08)
[2020-04-03] MEDS ORDERED: LACT10SO3 PO (17:08)
[2020-04-03] MEDS ORDERED: D-MA500C PO (17:08)
[2020-04-03] MEDS ORDERED: BISA10SU45 RE (17:08)
[2020-04-03] MEDS ORDERED: MAGNSUS71 PO (17:08)
[2020-04-03] MEDS ORDERED: LEVA1NEB5 IN (17:08)
[2020-04-03] MEDS: GABAPENTIN 300 MG CAP PO SCH (23:38)
[2020-04-04 05:08] VITALS: BP 99/54
[2020-04-04] MEDS: AZTREONAM 1GM INJ 1 GM in D5W 5% 50 ML IV SCH ×3 (05:44→22:46)
[2020-04-04 09:00] VITALS: BP 108/45
[2020-04-04] MEDS: BENAZEPRIL HCL 10 MG TAB PO SCH (10:00)
[2020-04-04] MEDS: APIXABAN 2.5 MG TAB PO SCH ×2 (10:20→22:47)
[2020-04-04] MEDS: AMIODARONE HCL 200 MG TAB PO SCH (10:20)
[2020-04-04] MEDS: SERTRALINE HCL 50 MG TAB PO SCH (10:20)
[2020-04-04] MEDS ORDERED: VANCOMYCIN 750mg/250ml 250 ML IV ONE (12:00)
[2020-04-04 13:00] VITALS: BP 106/60
[2020-04-04 17:00] VITALS: BP 96/45
[2020-04-04] MEDS: GABAPENTIN 300 MG CAP PO SCH (22:47)
[2020-04-04] MEDS: ACETAMINOPHEN 500 MG TAB PO PRN (22:47)
[2020-04-05 00:23] VITALS: BP 84/38
[2020-04-05] MEDS: AZTREONAM 1GM INJ 1 GM in D5W 5% 50 ML IV SCH ×3 (05:21→21:28)
[2020-04-05] MEDS: ACETAMINOPHEN 500 MG TAB PO PRN (05:21)
[2020-04-05 05:43] VITALS: BP 121/81
[2020-04-05 09:00] VITALS: BP 120/45
[2020-04-05] MEDS: AMIODARONE HCL 200 MG TAB PO SCH (09:46)
[2020-04-05] MEDS: APIXABAN 2.5 MG TAB PO SCH ×2 (09:46→21:28)
[2020-04-05] MEDS: SERTRALINE HCL 50 MG TAB PO SCH (09:47)
[2020-04-05] MEDS: BENAZEPRIL HCL 10 MG TAB PO SCH (09:47)
[2020-04-05] MEDS: VANCOMYCIN 750mg/250ml 250 ML IV SCH (12:37)
[2020-04-05 13:00] VITALS: BP 114/5
[2020-04-05 17:00] VITALS: BP 136/55
[2020-04-05] MEDS: GABAPENTIN 300 MG CAP PO SCH (21:28)
[2020-04-05 22:00] VITALS: BP 105/44
[2020-04-06 05:00] VITALS: BP 117/52
[2020-04-06 05:20] LABS: Basophils # (auto) 0.1 10 ^3/uL (0-0.2); Eosinophils # (auto) 0.3 10 ^3/uL (0-0.8); Hematocrit 24.8 % (36.0-46.0); Hemoglobin 8.7 g/dL (12.2-16.2); Lymphocytes % (auto) 19.9 % (10.0-50.0); Mean Corpuscular Hemoglobin 33.7 pg (28.0-32.0); Mean Corpuscular Hgb Conc. 34.9 g/dL (32.0-36.0); Mean Corpuscular Volume 96.6 fL (80.0-100.0); Monocytes # (auto) 0.6 10 ^3/uL (0-1.3); Monocytes % (auto) 10.6 % (0.0-12.0); Neutrophils # (auto) 3.3 10 ^3/uL (1.6-8.6); Neutrophils % (auto) 63.5 % (37.0-80.0); Platelet Count (auto) 411 10^3/uL (140-450); Red Blood Cells 2.57 10^6/uL (4.0-5.20); Red Cell Distribution Width 14.7 % (11.8-14.3); White Blood Cell 5.2 10^3/uL (4.4-10.8)
[2020-04-06] MEDS: AZTREONAM 1GM INJ 1 GM in D5W 5% 50 ML IV SCH ×3 (05:39→22:00)
[2020-04-06 09:26] VITALS: BP 148/65
[2020-04-06] MEDS: AMIODARONE HCL 200 MG TAB PO SCH (10:04)
[2020-04-06] MEDS: APIXABAN 2.5 MG TAB PO SCH ×2 (10:04→22:00)
[2020-04-06] MEDS: SERTRALINE HCL 50 MG TAB PO SCH (10:05)
[2020-04-06] MEDS: BENAZEPRIL HCL 10 MG TAB PO SCH (10:05)
[2020-04-06] MEDS: VANCOMYCIN 750mg/250ml 250 ML IV SCH (12:00)
[2020-04-06 14:22] VITALS: BP 110/50
[2020-04-06 16:44] VITALS: BP 142/60
[2020-04-06 20:00] VITALS: BP 116/47
[2020-04-06 22:00] VITALS: BP 116/47
[2020-04-06] MEDS: GABAPENTIN 300 MG CAP PO SCH (22:00)
[2020-04-07 05:00] VITALS: BP 107/76
[2020-04-07] MEDS: AZTREONAM 1GM INJ 1 GM in D5W 5% 50 ML IV SCH ×3 (05:20→21:14)
[2020-04-07 05:48] LABS: Hematocrit 26.4 % (36.0-46.0); Hemoglobin 9.3 g/dL (12.2-16.2); Mean Corpuscular Hemoglobin 33.8 pg (28.0-32.0); Mean Corpuscular Hgb Conc. 35.1 g/dL (32.0-36.0); Mean Corpuscular Volume 96.4 fL (80.0-100.0); Platelet Count (auto) 402 10^3/uL (140-450); Red Blood Cells 2.74 10^6/uL (4.0-5.20); Red Cell Distribution Width 15.1 % (11.8-14.3); White Blood Cell 4.8 10^3/uL (4.4-10.8)
[2020-04-07 06:26] LABS: Basophils % (manual) 0 (0.0-2.0); Blast Cells 0; Metamyelocytes % 0; Myelocytes % 0; Promyelocytes % 0; Reactive Lymphocytes 0
[2020-04-07 06:53] LABS: Band Neutrophils % (manual) 2; Eosinophils % (manual) 4 (0-7); Lymphocytes % (manual) 27 (10.0-50.0); Monocytes % (manual) 8 (0-12)
[2020-04-07 09:00] VITALS: BP 131/66
[2020-04-07] MEDS: AMIODARONE HCL 200 MG TAB PO SCH (10:17)
[2020-04-07] MEDS: SERTRALINE HCL 50 MG TAB PO SCH (10:17)
[2020-04-07] MEDS: BENAZEPRIL HCL 10 MG TAB PO SCH (10:18)
[2020-04-07] MEDS: APIXABAN 2.5 MG TAB PO SCH ×2 (10:18→21:14)
[2020-04-07] MEDS: VANCOMYCIN 750mg/250ml 250 ML IV SCH (12:45)
[2020-04-07 13:00] VITALS: BP 126/55
[2020-04-07] MEDS: ONDANSETRON HCL 4 MG/2 ML VIAL IV PRN (14:43)
[2020-04-07 16:42] VITALS: BP 114/64
[2020-04-07] MEDS: GABAPENTIN 300 MG CAP PO SCH (21:14)
[2020-04-07 22:00] VITALS: BP 115/63
[2020-04-08 05:00] VITALS: BP 129/55
[2020-04-08] MEDS: ONDANSETRON HCL 4 MG/2 ML VIAL IV PRN ×2 (05:26→13:33)
[2020-04-08] MEDS: AZTREONAM 1GM INJ 1 GM in D5W 5% 50 ML IV SCH ×2 (05:34→13:37)
[2020-04-08 06:27] LABS: Basophils # (auto) 0.1 10 ^3/uL (0-0.2); Basophils % (auto) 1.2 % (0.0-2.0); Eosinophils # (auto) 0.2 10 ^3/uL (0-0.8); Eosinophils % (auto) 4.9 % (0.0-7.0); Hematocrit 25.1 % (36.0-46.0); Hemoglobin 8.6 g/dL (12.2-16.2); Lymphocytes # (auto) 1.1 10 ^3/uL (0.4-5.4); Mean Corpuscular Hemoglobin 33.6 pg (28.0-32.0); Mean Corpuscular Hgb Conc. 34.3 g/dL (32.0-36.0); Mean Corpuscular Volume 97.9 fL (80.0-100.0); Monocytes # (auto) 0.7 10 ^3/uL (0-1.3); Monocytes % (auto) 14.9 % (0.0-12.0); Neutrophils # (auto) 2.6 10 ^3/uL (1.6-8.6); Nucleated Red Blood Cells % 0.1 %; Platelet Count (auto) 374 10^3/uL (140-450); Red Blood Cells 2.57 10^6/uL (4.0-5.20); Red Cell Distribution Width 14.8 % (11.8-14.3); White Blood Cell 4.8 10^3/uL (4.4-10.8)
[2020-04-08 08:00] VITALS: BP 139/55
[2020-04-08 09:00] VITALS: BP 139/55
[2020-04-08] MEDS: APIXABAN 2.5 MG TAB PO SCH (10:55)
[2020-04-08] MEDS: AMIODARONE HCL 200 MG TAB PO SCH (10:55)
[2020-04-08] MEDS: BENAZEPRIL HCL 10 MG TAB PO SCH (10:56)
[2020-04-08] MEDS: SERTRALINE HCL 50 MG TAB PO SCH (10:57)
[2020-04-08] MEDS: VANCOMYCIN 750mg/250ml 250 ML IV SCH (12:37)
[2020-04-08 13:00] VITALS: BP 130/51
[2020-04-08 14:08] VITALS: BP 130/51
[2020-04-08] MEDS: ACETAMINOPHEN 500 MG TAB PO PRN (14:39)
[2020-04-08] MEDS ORDERED: MUPIROCIN 2% OINT 15gm or 22gm TOP ONE (15:45)
[2020-04-09] MEDS ORDERED: VANCOMYCIN 1GM/250ML 250 ML IV SCH (12:00)
== END 2020-04-08 16:40 | DRG 444 ==
LOC: ER 12:01 → EDBD 12:01 → TELE 12:02 → TELE-CENTR 21:30
PROVIDERS: ADMIT Internal Medicine Cardiovascular Disease; ATTEND Internal Medicine Cardiovascular Disease
DX: K81.9 Cholecystitis, unspecified (principal); G93.41 Metabolic encephalopathy; N17.0 Acute kidney failure with tubular necrosis; E87.1 Hypo-osmolality and hyponatremia; D68.59 Other primary thrombophilia; I13.0 Hypertensive heart and chronic kidney disease with heart failure and stage 1 through stage 4 chronic kidney disease, or unspecified chronic kidney disease; I95.9 Hypotension, unspecified; I48.0 Paroxysmal atrial fibrillation; E87.6 Hypokalemia; N18.3 Chronic kidney disease, stage 3 (moderate); D72.829 Elevated white blood cell count, unspecified; Z20.828 Contact with and (suspected) exposure to other viral communicable diseases; I25.10 Atherosclerotic heart disease of native coronary artery without angina pectoris; I50.9 Heart failure, unspecified; E78.5 Hyperlipidemia, unspecified; J44.9 Chronic obstructive pulmonary disease, unspecified; Z79.01 Long term (current) use of anticoagulants; Z79.899 Other long term (current) drug therapy; Z90.710 Acquired absence of both cervix and uterus; Z95.5 Presence of coronary angioplasty implant and graft; Z88.1 Allergy status to other antibiotic agents; Z88.5 Allergy status to narcotic agent; Z88.8 Allergy status to other drugs, medicaments and biological substances
CPT/HCPCS: 36415; 51702; 70450; 71045; 74176; 80053; 80202; 81001; 82565; 83605; 83880; 84484; 85007; 85025; 85027; 87040; 87077; 87081; 87086; 87088; 87186; 93005; 96365; 96367; 99291; G0378; J0696; J2001; J2405; J7060